=== PATIENT | female | born 1935 | race Caucasian/White ===

== ENCOUNTER 2017-10-06 20:32 | Inpatient (IN) | payer MEDICARE, OTHER ==
[~2017-10-06] VITALS: Ht 167.6 cm; Wt 58.5 kg
[2017-10-06 22:30] VITALS: BP 137/95
[2017-10-06] MEDS ORDERED: DIAZEPAM 2 MG (VALIUM) TAB PO ONE (23:15)
[2017-10-06] MEDS: D5 1/2 NS 1000 ML IV SOLUTION 1,000 ML IV SCH (23:24)
[2017-10-06] MEDS ORDERED: ONDANSETRON 4 MG/2 ML (SDV) Z0FRAN IV PRN (23:30)
[2017-10-06] MEDS: fentaNYL INJECTION 100 MCG/2 ML AMP IV PRN (23:49)
[2017-10-07] VITALS (7 sets, daily range): BP systolic 137–181; BP diastolic 74–96
[2017-10-07] MEDS: LORazepam INJ 2 MG/ML (ATIVAN) VIAL IV PRN ×2 (02:40→06:29)
[2017-10-07] MEDS: fentaNYL INJECTION 100 MCG/2 ML AMP IV PRN ×4 (02:41→11:48)
--- NOTE | 2017-10-07 08:47 | HISTORY AND PHYSICAL ---
DATE OF SERVICE: 10/07/2017 CHIEF COMPLAINT: Pain in left hip. HISTORY OF PRESENT ILLNESS: This is an 81-year-old female who fell last night and sustained a left femoral neck fracture. She presented to the emergency room at [place] and was diagnosed with a hip fracture. They copied her x-rays to [facility], did lab work there, and sent her to [facility] for treatment of the fracture. She denies any other injury. The patient apparently went to sit down a kitchen chair and fell on her buttock. She can move all other extremities well. She has some minor scraping to the left shoulder. She has pain in the left hip. She has history of dementia and is very confused from that. PAST MEDICAL HISTORY: Hypertension, dementia, hypothyroidism. ALLERGIES: No known drug allergies. HOME MEDICATIONS: Amlodipine 5 mg daily, Valium 2 mg p.r.n., Aricept 10 mg daily, Flonase spray p.r.n., hydrocodone 5 for pain, levothyroxine 50 mcg p.o. daily, Megace 40 mg daily, multivitamin daily, Bactroban ointment p.r.n., Seroquel 25 mg daily, Kenalog ointment p.r.n. PAST SURGICAL HISTORY: Hysterectomy, EGD. FAMILY HISTORY: Noncontributory. SOCIAL HISTORY: Denies smoking, alcohol. She lives in [place]. She is retired. REVIEW OF SYSTEMS: Unobtainable. PHYSICAL EXAMINATION: VITAL SIGNS: Temperature 98.2, blood pressure 163/74, pulse 76, respirations 18, pulse ox 98%. GENERAL: She is sleeping in bed and I did not wake her up due to her recent problems with agitation and combativeness. Her daughter is in the room. HEENT: No obvious trauma, no hematomas or bruising. Upper extremities show no deformity other than some arthritic deformities of the fingers. There is an abrasion to the left lateral shoulder. CHEST: Clear to auscultation. HEART: Regular rate and rhythm with a systolic ejection murmur noted. ABDOMEN: Positive bowel sounds, no masses, no distention. EXTREMITIES: His left hip is tender to palpation. The rest of the lower extremities are atraumatic. NEUROLOGIC: Unobtainable at this time due to her being heavily sedated. VASCULAR: Good capillary refill noted. X-RAYS: Displaced left femoral neck fracture LABORATORY DATA: Studies we have no lab studies here at [facility], but they sent copies of her lab studies from [place]. Her protime is 10. INR is 1. CBC shows a white count of 9.8, hemoglobin 11.9, hematocrit 35.7, platelets 299. Her complete metabolic panel shows a sodium of 133, potassium 5.2, chloride 94, CO2 20, calcium 8.6, BUN 10, creatinine 0.76, glucose 99, total protein 6.6, albumin 3.6. Her PTT is 22.7. DIAGNOSIS: Left femoral neck fracture. PLAN: Since the fracture is displaced we will need to do a hemiarthroplasty. The risks, benefits usual postoperative course of this was explained and understood. The hospitalist has been consulted. Job ID: [id number] DocumentID: [id number] Dictated Date: 10/07/2017 07:21:08 Line Server Date: 10/07/2017 08:47:45 Dictated By: JONATHAN RAMOS MD MTDD
[2017-10-07] MEDS ORDERED: ALPR1TAB7 PO (09:58)
[2017-10-07] MEDS ORDERED: AMLO5TAB2 PO (09:58)
[2017-10-07] MEDS ORDERED: LEVO50TA6 PO (09:58)
[2017-10-07] MEDS ORDERED: AMIT50TA3 PO (09:58)
[2017-10-07] MEDS ORDERED: COCO1000 PO (10:07)
[2017-10-07] MEDS ORDERED: CHOL20003 PO (10:07)
[2017-10-07] MEDS ORDERED: VITA1CAP PO (10:07)
[2017-10-07] MEDS ORDERED: QUET25TA73 PO (10:07)
[2017-10-07] MEDS ORDERED: GENTAMICIN 40 MG/ML 2 ML INJ SDV ONE (10:17)
[2017-10-07] MEDS ORDERED: LACTATED RINGERS 1,000 ML IV PRN (10:18)
[2017-10-07] MEDS ORDERED: SEVOFLURANE (ULTANE) 15 ML INHAL SOLN ONE ×2 (11:50→13:35)
[2017-10-07] MEDS ORDERED: proPOfol 200 MG/20 ML (DIPRIVAN) VIAL IV ONE (11:50)
[2017-10-07] MEDS ORDERED: NEOSTIGMINE 1 MG/ML 5 ML SYRINGE ONE (11:50)
[2017-10-07] MEDS ORDERED: LIDOCAINE PF 2% 5 ML (XYLOCAINE) VIAL ONE (11:50)
[2017-10-07] MEDS ORDERED: fentaNYL INJECTION 100 MCG/2 ML AMP ONE (11:50)
[2017-10-07] MEDS ORDERED: DEXAMETHASONE 10 MG/ML (DECADRON) 1 ML VIAL ONE (11:50)
[2017-10-07] MEDS ORDERED: ROCURONIUM 10 MG/ML 5 ML SYRINGE IV ONE (11:50)
[2017-10-07] MEDS ORDERED: GLYCOPYRROLATE 0.2 MG/ML (ROBINUL) 2 ML VIAL ONE (11:50)
[2017-10-07] MEDS ORDERED: ONDANSETRON 4 MG/2 ML (SDV) Z0FRAN ONE (11:50)
[2017-10-07] MEDS: KETOROLAC 15 MG/ML VIAL IM/IV SCH ×2 (12:45→18:03)
[2017-10-07] MEDS ORDERED: morphine INJ 4 MG/ML 1 ML (VIAL/SYRINGE) IV PRN (12:45)
[2017-10-07] MEDS ORDERED: ACETAMINOPHEN 325 MG TABLET/CAPLET (TYLENOL) PO PRN (12:45)
[2017-10-07] MEDS ORDERED: oxyCODONE/APAP 5/325MG (PERCOCET 5) TABLET PO PRN (12:45)
[2017-10-07] MEDS ORDERED: ceFAZolin 1,000 MG (ANCEF) VIAL ONE (12:48)
[2017-10-07] MEDS ORDERED: PHENYLEPHRINE 100 MCG/ML 10 ML (ANESTHESIA) SYR ONE (13:35)
--- NOTE | 2017-10-07 13:57 | Physical Therapy Progress Note ---
Therapy Progress Note Patient currently in surgery. DAMIEN WILLIAMSON PT Oct 07, 2017 13:57
--- NOTE | 2017-10-07 14:15 | Progress Note-Post Operative ---
Post-Operative Progess Note Surgeon (s)/Manager Embalmer Funeral Director (s) Surgeon JONATHAN RAMOS MD Manager Embalmer Funeral Director: THOM LENTZ PA-C Pre-Operative Diagnosis LEFT DISPLACED SUBCAPITAL FEMORAL NECK FRACTURE Post-Operative Diagnosis SAME Procedure & Operative Findings Date of Procedure 10/07/17 Procedure Performed/Findings BIPOLAR HEMIARTHROPLASTY LEFT HIP Anesthesia Type GENERAL Estimated Blood Loss Estimated blood loss (mL): 300 ML Specimens/Packing Specimens Removed NONE Packing: NONE JONATHAN RAMOS MD Oct 07, 2017 14:15
[2017-10-07] MEDS ORDERED: morphine INJ 10 MG/ML 1ML (SYR OR VIAL) ONE (14:38)
[2017-10-07] MEDS ORDERED: morphine INJ 10 MG/ML 1ML (SYR OR VIAL) IVP PRN (15:00)
[2017-10-07] MEDS ORDERED: ONDANSETRON 4 MG/2 ML (SDV) Z0FRAN IVP PRN (15:00)
--- NOTE | 2017-10-07 15:00 | Diagnostic Imaging Report ---
INDICATION: Status post left hip replacement. COMPARISON: None. FINDINGS: Single AP view of the pelvis was obtained. There are expected postsurgical changes of left hip hemiarthroplasty . There is appropriate anatomic alignment of the femoral component in relation to the acetabulum. The stem of the femoral component is located centrally in the medullary cavity. There is no periprosthetic fracture. No acute fracture or dislocation is identified. There is a small amount of subcutaneous emphysema in the surrounding soft tissues. No unexpected radiopaque foreign bodies identified. IMPRESSION: Expected postsurgical changes of left hip hemiarthroplasty.. No unexpected radiopaque foreign body identified. Dictated by: Dictated on workstation # [id number]
--- NOTE | 2017-10-07 15:11 | Diagnostic Imaging Report ---
INDICATION: Status post left hip replacement. COMPARISON: None. FINDINGS: Two radiographic views of the left hip were obtained. There are post surgical changes of recent left hip hemiarthroplasty. There is appropriate anatomic alignment of the femoral component in relation to the acetabulum. The stem of the femoral component is located centrally in the medullary cavity. There is no periprosthetic fracture. No acute fracture or dislocation is identified. There is a small amount of subcutaneous emphysema in the surrounding soft tissues. No unexpected radiopaque foreign bodies identified. IMPRESSION: Expected postsurgical changes of left hip hemiarthroplasty. No unexpected radiopaque foreign body identified. Dictated by: Dictated on workstation # [id number]
[2017-10-07] MEDS: LACTATED RINGERS 1,000 ML IV SCH (15:43)
[2017-10-07] MEDS: D5 1/2 NS 1000 ML IV SOLUTION 1,000 ML IV SCH (15:45)
[2017-10-07] MEDS: HYDROcodone/APAP 5 MG/325 MG (LORTAB) TAB PO PRN (18:47)
[2017-10-07] MEDS: ceFAZolin 2 GM IV Premixed 50 ML IV SCH (20:08)
[2017-10-07] MEDS: QUEtiapine 25 MG (SEROquel) TAB IMMEDIATE RELEASE PO SCH (20:11)
--- NOTE | 2017-10-07 23:57 | OPERATIVE REPORT ---
DATE OF SERVICE: 10/07/2017 PREOPERATIVE DIAGNOSIS: Displaced subcapital left femoral neck fracture. POSTOPERATIVE DIAGNOSIS: Displaced subcapital left femoral neck fracture. PROCEDURE: Bipolar hemiarthroplasty, left hip. SURGEON: Jonathan Balderas MD EXPLOSION WELDER: Rene Daly PA-C. EXPLOSION WELDER SURGEON DUTIES: The patient positioning, retraction, wound closure, application of sterile dressings. Use of an secretary administrative assistant surgeon was medically indicated. ANESTHESIA: General. COMPLICATIONS: None. ESTIMATED BLOOD LOSS: 300 mL. SPECIMENS: None. INDICATIONS: This lady is fractured her left hip yesterday evening when she missed the chair sitting down. She was admitted to the hospital for treatment of a left femoral neck fracture. IMPLANTS: DePuy Tri-Lock size 4 standard offset press-fit femoral stem with a 28 mm femoral head +1.5 mm neck length a 44 mm bipolar head. PROCEDURE IN DETAIL: After informed consent, the patient transported to the operating room. She was placed on the operative table in supine position. General anesthesia was induced. She was then turned to the right lateral decubitus position on the pegboard. Axillary roll placed. The left hip was prepped with ChloraPrep and draped in sterile fashion. An Ioban was placed on the skin. A curvilinear incision was made over the lateral aspect of the left hip was carried out through subcutaneous tissues down to the deep fascia. The fascia houston and gluteus fascia were opened in line with the skin incision and then the Charnley self-retaining hip retractor was placed. The left hip was externally rotated. A direct lateral approach was utilized. The abductors were split anteriorly and superiorly towards the ilium and then the medius and minimus tendons were released from the greater trochanter anteriorly and reflected anteriorly as a flap. The joint capsule was entered. Hematoma extruded. The joint capsule was opened in a T-fashion and preserved for repair. The hip was externally rotated, flexed and abducted and the remaining femoral neck was trimmed with a sagittal saw. Femoral head was removed from the acetabulum with a corkscrew. The measuring device showed it to be 44 diameter. A 44 trial head was placed on the handle and placed in the acetabulum and had a good fit. Next, the femur was opened with box chisel followed by T-handle reamer and broaches up to a 4 broach, which obtained a good fit. The Calcar reamer was utilized. I then trialed a standard offset femoral neck, the standard 28 mm femoral head and a 44 bipolar head, she fit very tightly. I dropped down to 1.5 neck length and this allowed for full range of motion and equal leg lengths. The hip that was dislocated, the trial components were removed. The femur was thoroughly irrigated with the pulse lavage and then the size 4 standard offset stem was impacted. The 28 mm femoral head with a +1.5 neck length was impacted onto the stem along with the bipolar head. The hip was again reduced and felt to be stable. The joint was thoroughly irrigated with a pulse lavage. The femur was carefully inspected and was free of any fracture. The joint capsule was closed with interrupted #5 Ethibond and then the gluteus medius and minimus tendons were repaired to the greater trochanter with interrupted #5 Ethibond suture, which was reinforced with interrupted #1 Vicryl suture. The gluteus fascia and fascia houston were closed with a running double layered #1 Stratafix suture with #1 Vicryl sutures at stress points, subcutaneous tissues were closed with running 2-0 Vicryl. Skin was repaired with michelle. Sterile dressings were applied. She then was transported to the recovery room in stable condition having tolerated the procedure well without complications. Job ID: [id number] DocumentID: [id number] Dictated Date: 10/07/2017 14:13:51 Equipment Superintendent Date: 10/07/2017 23:56:30 Dictated By: JONATHAN BALDERAS MD [facility]
[2017-10-08] VITALS (7 sets, daily range): BP systolic 127–181; BP diastolic 71–89
[2017-10-08] MEDS: KETOROLAC 15 MG/ML VIAL IM/IV SCH (00:36)
[2017-10-08] MEDS: LORazepam INJ 2 MG/ML (ATIVAN) VIAL IV PRN ×6 (00:48→17:50)
[2017-10-08] MEDS: LACTATED RINGERS 1,000 ML IV SCH ×2 (04:04→17:43)
[2017-10-08] MEDS: ceFAZolin 2 GM IV Premixed 50 ML IV SCH (04:04)
[2017-10-08] MEDS: LEVOTHYROXINE 50 MCG (LEVOTHROID) TAB PO SCH (05:03)
[2017-10-08] MEDS: HYDROcodone/APAP 5 MG/325 MG (LORTAB) TAB PO PRN ×3 (05:03→19:38)
[2017-10-08] MEDS: MULTIVIT W/MINERALS TAB (THERAGRAN M) PO SCH (05:03)
[2017-10-08 05:51] LABS: HEMOGLOBIN 10.7 G/DL (11.5-16.0)
--- NOTE | 2017-10-08 08:13 | Anesthesia-General Post-Op ---
General Significant Intra-Op Events Notes Pt sleeping, nurse reported no anesthesia complications Patient Condition Mental Status/LOC: Same as Preop Cardiovascular: Satisfactory Nausea/Vomiting: Absent Respiratory: Satisfactory Pain: Controlled Complications: Absent Post Op Complications Complications None Follow Up Care/Instructions Patient Instructions None needed. Anesthesia/Patient Condition Patient Condition Patient is doing well, no complaints, stable vital signs, no apparent adverse anesthesia problems. No complications reported per nursing. [place] [facility] [place]: Yes MELLY VALENZUELA CRNA Oct 08, 2017 08:13
--- NOTE | 2017-10-08 08:44 | Physical Therapy Evaluation ---
PT Evaluation-General Medical Diagnosis Admission Date Oct 06, 2017 at 22:32 Medical Diagnosis: left ANY Onset Date: Oct 06, 2017 Therapy Diagnosis Therapy Diagnosis: impaired mobility, strength, endurance, pain Height/Weight Height (Feet): 5 Height (Inches): 6.00 Weight (Pounds): 128 Weight (Ounces): 14.7 Precautions Precautions/Isolations: Fall Prevention, Standard Precautions Weight Bear Status Right Lower Extremity: Right Full Weight Bearing Left Lower Extremity: Left Full Weight Bearing Referral Physician: Jhon Balderas MD Reason for Referral: Evaluation/Treatment Medical History Pertinent Medical History: Arthritis, Dementia, HTN, Hypothroidism Current History patient tried to sit on a chair, missed and landed on her bottom Reviewed History: Yes Social History Home: Apartment Current Living Status: Spouse Entry Into Home: Level Entry Prior/Core FIM Prior Level of Function Functional [place] Measure 0=Not Assessed/NA 4=Minimal Assistance 1=Total Assistance 5=Supervision or Setup 2=Maximal Assistance 6=Modified [place] 3=Moderate Assistance 7=Complete [place] unknown, patient is confused and does not communicate, only grunts PT Evaluation-Current Subjective Patient in bed pre tx, confused, only grunts to communicate, does seem to indicate that she has some pain in her left hip. Pt/Family Goals none stated Objective Patient Orientation: Confused Attachments: IV ROM/Strength ROM Lower Extremities NT Strength Lower Extremities NT due to pain and confusion, not able to follow commands Neuromuscular (Tone, Coordination, Reflexes) NT Transfers Functional [place] Measure 0=Not Assessed/NA 4=Minimal Assistance 1=Total Assistance 5=Supervision or Setup 2=Maximal Assistance 6=Modified [place] 3=Moderate Assistance 7=Complete [place] Transfers (B, C, W/C) (FIM): 2 Scootin Rollin Supine to/from Sit: 2 Sit to/from Stand: 2 Patient was able to sit at the edge of the bed for about 5 min and stood twice for approx. 30 seconds each time, she was not able to bear much weight on her left leg. Balance Sitting Static: Poor Sitting Dynamic: Poor Standing Static: Poor Standing Dynamic: Poor Treatment PROM attempted on left leg (within protocol), but patient resisted and would not let it happen, she does not follow commands and will not perform protocol exercises. Assessment/Needs Patient has impaired mobility, strength, endurance, balance, pain, post left ANY. She is confused and a high fall risk. Bed alarm on at the end of the treatment. Rehab Potential: Guarded PT Short Term Goals Short Term Goals Time Frame: October 15, 2017 Transfers (B,C,W/C) (FIM): 4 Gait (FIM): 1 Gait Distance Comment: 20' Gait Level of Assist: 4 Gait Assistive Device: FWW PT Plan Problem List Problem List: Activity Tolerance, Functional Strength, Safety, Balance, Gait, Transfer, Bed Mobility, ROM Treatment/Plan Treatment Plan: Continue Plan of Care Treatment Plan: Bed Mobility, Education, Functional Activity Tory, Functional Strength, Gait, Safety, Therapeutic Exercise, Transfers Treatment Duration: October 15, 2017 Frequency: 11 times per week Estimated Hrs Per Day: .25 hour per day (15-30') Patient and/or Family Agrees t: Yes Safety Risks/Education Patient Education: Transfer Techniques, Reviewed Precautions, Correct Positioning, Disease Process, Safety Issues Teaching Recipient: Patient Teaching Methods: Demonstration, Discussion Response to Teaching: Reinforcement Needed Discharge Recommendations Plan Patient will perform bed mobility and transfer training, balance and endurance training, functional strengthening, stair training, gait training, and education , to improve functional mobility and independence at home. Therapy D/C Recommendations: Home w/ Family Support, Retirement (TCU/NH) Time/GCodes Time In: 819 Time Out: 834 Total Billed Treatment Time: 15 Total Billed Treatment 1 visit RAND 15' ZHANNA MAO PT Oct 08, 2017 08:44
[2017-10-08] MEDS ORDERED: COCONUT OIL 1000 MG PO SCH (09:00)
[2017-10-08] MEDS: amLODIPine 5 MG (NORVASC) TAB PO SCH (09:16)
[2017-10-08] MEDS: VITAMIN D3 1,000 UNITS (CHOLECALCIFEROL) TABLET PO SCH (09:16)
--- NOTE | 2017-10-08 10:51 | Occupational Therapy Eval ---
OT Evaluation-General/PLF Medical Diagnosis Admission Date Oct 06, 2017 at 22:32 Medical Diagnosis: left ANY Onset Date: Oct 06, 2017 Therapy Diagnosis Therapy Diagnosis: decreased self care skills Height/Weight Height (Feet): 5 Height (Inches): 6.00 Weight (Pounds): 128 Weight (Ounces): 14.7 Precautions Precautions/Isolations: Fall Prevention, Standard Precautions Safety Interventions: Reorient-Attempt, Reorient-PRN Referral Physician: Jhon Balderas MD Medical History Pertinent Medical History: Arthritis, Dementia, HTN, Hypothroidism Current History Pt was attempting to sit in a chair at home and missed the chair. S/p left hemiarthroplasty Reviewed History: Yes Social History Home: Apartment Current Living Status: Spouse Entry Into Home: Level Entry ADL-Prior Level of Function ADL PLOF Comments Pt unable to provide history. Daughter present and states pt has been living at home with spouse. Pt has been requiring some assist with ADLs at baseline secondary to dementia. Is able to ambulate without AD, and is able to dress, toilet, and feed self. Spouse assists with tub transfers and bathing. Daughter states the family has been discussing the living situation as pt has been more difficult to care for at home. DME/Equipment: Grab Bars, Tub Drive Self: No OT Current Status Subjective Pt in bed with daughter present. Pt states she is not having pain, but does wince with movement. Pt able to answer simple questions, but has minimal verbalizations. Pt groans throughout treatment, but daughter states this is not new. Mental Status/Objective Patient Orientation: Person, Confused Attachments: IV Current Glasses/Contacts: No Hearing Aids: Yes Dentures/Partials: No Hand Dominance: Right Upper Extremity ROM Grossly WFL Upper Extremity Strength Unable to perform formal MMT secondary to difficulty following commands. Pt appears to have fair strength. ADL-Treatment ADL-Current Daughter states she fed pt breakfast this morning as pt was too confused to complete on her own. Pt able to wash face with minimal assistance when given washcloth. Pt declined to attempt combing hair, required assist to complete task. Pt supine to sit with moderate assistance. Pt able to sit EOB with minimal assistance for balance. Sit to supine with assist for bilateral LE. Pt resting in bed with needs met and daughter present after session. Functional [place] Measure 0=Not Assessed/NA 4=Minimal Assistance 1=Total Assistance 5=Supervision or Setup 2=Maximal Assistance 6=Modified [place] 3=Moderate Assistance 7=Complete IndependenceIRFPAI Quality Coding Scale 6 Independent with activity with or without an assistive device 5 Patient requires set up or clean up by helper. Patient completes activity by themselves 4 Supervision or touching assist (CGA). [place] provide cues , steadying assist 3 The helper provides less than half the effort to complete the activity 2 The helper provides more than half the effort to complete the activity 1 Dependent. The helper does all the effort to complete an activity 7 Patient refused to complete or attempt activity 9 The patient did not perform the activity before the current illness or injury 88 Not attempted due to Medical conditions or safety concerns Eating (FIM): 1 Grooming (FIM): 2 Education OT Patient Education: Rehab process Teaching Recipient: Patient Teaching Methods: Discussion Response to Teaching: Unable to Comprehend OT Short Term Goals Short Term Goals Transfers (B,C,W/C) (FIM): 4 1=Demonstrate adherence to instructed precautions during ADL tasks. 2=Patient will verbalize/demonstrate understanding of assistive devices/ modifications for ADL. 3=Patient will improve strength/tolerance for activity to enable patient to perform ADL's. OT Telephone Operator Receptionist Goals Telephone Operator Receptionist Goals Time Frame: October 22, 2017 Eating (FIM): 5 Grooming(FIM): 4 Upper Body Dressing(FIM): 4 Toilet/Commode Transfer(FIM): 3 Additional Goals: 2-Verbalize Understanding, 3-ImproveStrength/Tory 1=Demonstrate adherence to instructed precautions during ADL tasks. 2=Patient will verbalize/demonstrate understanding of assistive devices/ modifications for ADL. 3=Patient will improve strength/tolerance for activity to enable patient to perform ADL's. OT Education/Plan Problem List/Assessment Assessment: Decreased Activ Tolerance, Decreased Safety Aware, Decreased UE Strength, Dependent Transfers, Impaired Cognition, Impaired Coordination, Impaired Funct Balance, Impaired I ADL's, Impaired Self-Care Skills Pt admitted with left hip fracture, now s/p surgical intervention. Pt is confused and has difficulty following commands and participating in functional tasks. Pt to benefit from skilled OT intervention for ADL training, transfers, and strengthening to maximize level of function and allow safe discharge plan. Discharge Recommendations Plan/Recommendations: Continue POC Treatment Plan/Plan of Care Treatment,Training & Education: Yes Patient would benefit from OT for education, treatment and training to promote independence in ADL's, mobility, safety and/or upper extremity function for ADL' s. Plan of Care: ADL Retraining, Functional Mobility, UE Funct Exercise/Act Treatment Duration: October 22, 2017 Frequency: 5 times per week Estimated Hrs Per Day: .25 hour per day Rehab Potential: Guarded Time/GCodes Start Time: 10:18 Stop Time: 10:42 Total Time Billed (hr/min): 24 Billed Treatment Time 1 visit, KAROLINA(10minutes), DOC(14minutes) GENO DRUMMOND OT Oct 08, 2017 10:51
--- NOTE | 2017-10-08 12:32 | Progress Note (SOAP) ---
Subjective Date Seen by Provider: Oct 08, 2017 Time Seen by Provider: 12:30 Subjective/Events-last exam POD s/p bipolar prosthesis left hip. Daughter at bedside. Patient does not verbalize complaints. Objective Exam Vital Signs Date Time Temp Pulse Resp B/P (MAP) Pulse Ox O2 Delivery O2 Flow Rate FiO2 10/08/17 08:00 99.6 100 20 169/81 (110) 93 Room Air 10/08/17 05:00 99.0 109 19 179/78 (111) 92 Room Air 10/08/17 00:00 96.7 94 18 127/89 (102) 91 Room Air 10/07/17 19:10 98.3 90 20 137/90 (106) 97 Nasal Cannula 2.00 10/07/17 16:32 97.9 92 18 148/82 (104) 94 OxyMask 2.00 10/07/17 15:56 93 OxyMask 2.00 10/07/17 13:36 Nasal Cannula 2.00 I & O 10/08/17 07:00 Intake Total 1250 ml Output Total 1670 ml Balance -420 ml Capillary Refill : Less Than 3 Seconds General Appearance: No Apparent Distress Respiratory: No Accessory Muscle Use Cardiovascular: Normal Peripheral Pulses Gastrointestinal: non tender Extremity: Normal Capillary Refill, No Calf Tenderness Neurologic/Psychiatric: Alert Skin: Normal Color, Warm/Dry (dressing left hip CDI) Results Lab Laboratory Tests 10/08/17 05:13: Hemoglobin 10.7L, Hematocrit 31L Assessment/Plan Assessment/Plan Assess & Plan/Chief Complaint A: s/p bipolar prosthesis left hip severe dementia left femoral neck fracture P: Continue current treatment. oncology social worker to assess for skilled placement. Clinical Quality Measures DVT/VTE Risk/Contraindication: Risk Factor Score Per Nursin RFS Level Per Nursing on Admit: 4+=Very High PAPA ULLOA APRN Oct 08, 2017 12:32 pm
--- NOTE | 2017-10-08 12:39 | Consultation-Hospitalist ---
HPI History of Present Illness: HPI/Chief Complaint CC: Medical management following left hip fracture HPI: This is an 81-year-old white female clinic patient of Dr. Alonzo who has a history of severe dementia cared for by her at home who presented to [facility] after presenting to [place] ER after she fell could not move due to left hip pain and was diagnosed with left hip fracture. Patient underwent an uncomplicated left hip repair by Dr. Balderas and is currently doing well but needs her family at the bedside continuously. Her daughter is at the bedside and is aware that she needs to go to the [facility] without location of that facility. I have consulted geriatric social work professor. I will check labs in the morning I've reconciled and restarted home medications and will monitor patient closely for any type of delirium. Patient unable to give any details to me. Source: family Exam Limitations: no limitations Date Seen 10/08/17 Attending Physician Jhon Balderas MD PCP Jhon Alonzo MD Referring Physician Date of Admission Oct 06, 2017 at 22:32 Home Medications & Allergies Home Medications Reviewed patient Home Medication Reconciliation performed by pharmacy medication reconciliations facility environmental technician and/or nursing. Patients Allergies have been reviewed. Allergies Allergies Coded Allergies No Known Drug Allergies (Unverified10/06/17) Past Cpwulza-Hthcuf-Abuwns Hx Past Med/Social Hx: Reviewed Nursing Past Med/Soc Hx, Reviewed and Corrections made Patient Social History Marrital Status: Employed/Student: retired Alcohol Use: Denies Use Recreational Drug Use: No Smoking Status: Never a Smoker Physical Abuse Screen: No Sexual Abuse: No Recent Foreign Travel: No Contact w/other who traveled: No Recent Hopitalizations: No Recent Infectious Disease Expo: No Seasonal Allergies Seasonal Allergies: No Past Medical History Surgeries: Orthopedic Neurological: Dementia Endocrine: Hypothyroidsim Cancer: Skin Did You Recieve Any Treatments: Yes What Type of Treatment Did You: Surgical Intervention Psychosocial: Sleep Difficulties, Anxiety History of Blood Disorders: No Adverse Reaction to Blood Aranda: No Family History Hypertension Review of Systems ROS-Unable to Obtain: Unable to ascertain due to dementia Constitutional: see HPI Physical Exam Physical Exam Vital Signs Vital Signs - First Documented 10/06/17 10/07/17 22:30 02:00 Temp 98.9 Pulse 99 Resp 19 B/P (MAP) 137/95 (109) Pulse Ox 100 O2 Delivery Nasal Cannula O2 Flow Rate 2.00 Capillary Refill : Less Than 3 Seconds General Appearance: No Apparent Distress, WD/WN, Chronically ill HEENT: Normal ENT Inspection Neck: Normal Inspection Respiratory: Lungs Clear, Normal Breath Sounds Cardiovascular: Regular Rate, Rhythm, No Edema Gastrointestinal: Non Tender, Soft Back: Normal Inspection, No CVA Tenderness, No Vertebral Tenderness Extremity: Normal Capillary Refill, Normal Inspection, Normal Range of Motion ( Except left leg due to pain), Non Tender, No Calf Tenderness Neurologic/Psychiatric: Alert, Disoriented Skin: Normal Color, Warm/Dry Lymphatic: No Adenopathy Results Results/Procedures Labs Laboratory Tests 10/08/17 05:13 Patient resulted labs reviewed. Assessment/Plan Assessment and Plan Assess & Plan/Chief Complaint Assessment: Acute left hip fracture status post uncomplicated repair Hypothyroidism Severe dementia Plan: Check labs in morning DVT prophylaxis alf placement on Friday Diagnosis/Problems Diagnosis/Problems (1) Hip fracture, left Status: Acute Qualifiers: Encounter type: initial encounter Fracture type: closed Qualified Codes: S72.002A - Fracture of unspecified part of neck of left femur, initial encounter for closed fracture (2) Dementia Status: Chronic Qualifiers: Dementia type: Alzheimer's disease Alzheimer's disease onset: unspecified onset Dementia behavioral disturbance: with behavioral disturbance Qualified Codes: G30.9 - Alzheimer's disease, unspecified; F02.81 - Dementia in other diseases classified elsewhere with behavioral disturbance (3) Hypothyroidism Status: Chronic Qualifiers: Hypothyroidism type: acquired Qualified Codes: E03.9 - Hypothyroidism, unspecified Clinical Quality Measures DVT/VTE Risk/Contraindication: Risk Factor Score Per Nursin RFS Level Per Nursing on Admit: 4+=Very High FILI CREWS DO Oct 08, 2017 12:39
--- NOTE | 2017-10-08 15:46 | Physical Therapy Daily Note ---
PT Daily Note-Current Subjective Patient in bed pre tx, family in the room. Unable to assess pain. Appearance Patient in bed post tx with nurse call, phone, tray, bed alarm on, O2 on. Mental Status Patient Orientation: Confused Attachments: Oxygen Transfers Functional [place] Measure 0=Not Assessed/NA 4=Minimal Assistance 1=Total Assistance 5=Supervision or Setup 2=Maximal Assistance 6=Modified [place] 3=Moderate Assistance 7=Complete IndependenceIRFPAI Quality Coding Scale 6 Independent with activity with or without an assistive device 5 Patient requires set up or clean up by helper. Patient completes activity by themselves 4 Supervision or touching assist (CGA). [place] provide cues , steadying assist 3 The helper provides less than half the effort to complete the activity 2 The helper provides more than half the effort to complete the activity 1 Dependent. The helper does all the effort to complete an activity 7 Patient refused to complete or attempt activity 9 The patient did not perform the activity before the current illness or injury 88 Not attempted due to Medical conditions or safety concerns Transfers (B, C, W/C) (FIM): 2 Scootin Rollin Supine to/from Sit: 2 Sit to/from Stand: 2 Patient transferred from supine to sit with max assist of 2, stood twice at the edge of the bed with max assist for about 10 seconds each time. Weight Bearing Right Lower Extremity: Right Full Weight Bearing Left Lower Extremity: Left Full Weight Bearing Exercises Seated Therapy Exercises: Ankle pumps, Long arc quads Seated Reps: 5 5 reps of exercises is all she would perform Treatments bed mobility, transfers, functional strengthening Assessment Current Status: Poor Progress poor mobility PT Short Term Goals Short Term Goals Time Frame: October 15, 2017 Transfers (B,C,W/C) (FIM): 4 Gait (FIM): 1 Gait Distance Comment: 20' Gait Level of Assist: 4 Gait Assistive Device: FWW PT Plan Problem List Problem List: Activity Tolerance, Functional Strength, Safety, Balance, Gait, Transfer, Bed Mobility, ROM Treatment/Plan Treatment Plan: Continue Plan of Care Treatment Plan: Bed Mobility, Education, Functional Activity Tory, Functional Strength, Gait, Safety, Therapeutic Exercise, Transfers Treatment Duration: October 15, 2017 Frequency: 11 times per week Estimated Hrs Per Day: .25 hour per day (15-30') Patient and/or Family Agrees t: Yes Safety Risks/Education Patient Education: Transfer Techniques, Correct Positioning, Safety Issues Teaching Recipient: Patient Teaching Methods: Demonstration, Discussion Response to Teaching: Reinforcement Needed Time/GCodes Time In: 1515 Time Out: 1525 Total Billed Treatment Time: 10 Total Billed Treatment 1 visit FA ZHANNA GILMAN PT Oct 08, 2017 15:46
[2017-10-08] MEDS: QUEtiapine 25 MG (SEROquel) TAB IMMEDIATE RELEASE PO SCH (19:38)
[2017-10-08] MEDS ORDERED: amLODIPine 5 MG (NORVASC) TAB PO NR (20:15)
[2017-10-09] MEDS: LORazepam INJ 2 MG/ML (ATIVAN) VIAL IV PRN ×4 (02:16→20:52)
[2017-10-09] MEDS: LEVOTHYROXINE 50 MCG (LEVOTHROID) TAB PO SCH (05:48)
[2017-10-09] MEDS: MULTIVIT W/MINERALS TAB (THERAGRAN M) PO SCH (05:50)
[2017-10-09] MEDS: LACTATED RINGERS 1,000 ML IV SCH (05:52)
[2017-10-09 06:21] LABS: BASOPHILS % (AUTO) 0 % (0-10); EOSINOPHILS # (AUTO) 0.3 10^3/uL (0.0-0.3); EOSINOPHILS % (AUTO) 2 % (0-10); HEMATOCRIT 31 % (35-52); HEMOGLOBIN 10.9 G/DL (11.5-16.0); LYMPHOCYTES # (AUTO) 1.7 X 10^3 (1.0-4.0); LYMPHOCYTES % (AUTO) 13 % (12-44); MEAN CORPUSCULAR HEMOGLOBIN 32 PG (25-34); MEAN CORPUSCULAR HGB CONC 35 G/DL (32-36); MEAN CORPUSCULAR VOLUME 93 FL (80-99); MEAN PLATELET VOLUME 9.8 FL (7.4-10.4); MONOCYTES # (AUTO) 0.8 X 10^3 (0.0-1.0); MONOCYTES % (AUTO) 6 % (0-12); NEUTROPHILS % (AUTO) 79 % (42-75); PLATELET COUNT 306 10^3/uL (130-400); RED BLOOD COUNT 3.36 10^6/uL (4.35-5.85); RED CELL DISTRIBUTION WIDTH 13.6 % (10.0-14.5); WHITE BLOOD COUNT 12.8 10^3/uL (4.3-11.0)
[2017-10-09 06:39] LABS: ALANINE AMINOTRANSFERASE 15 U/L (0-55); ALBUMIN 3.1 GM/DL (3.2-4.5); ALKALINE PHOSPHATASE 81 U/L (40-136); BILIRUBIN,TOTAL 0.7 MG/DL (0.1-1.0); BUN/CREATININE RATIO 17; CALCIUM 8.5 MG/DL (8.5-10.1); CARBON DIOXIDE 25 MMOL/L (21-32); CHLORIDE 103 MMOL/L (98-107); GFR ESTIMATED > 60; GLUCOSE 98 MG/DL (70-105); POTASSIUM 3.5 MMOL/L (3.6-5.0); SODIUM 137 MMOL/L (135-145); TOTAL PROTEIN 5.9 GM/DL (6.4-8.2)
[2017-10-09 08:30] VITALS: BP 170/79
[2017-10-09] MEDS: VITAMIN D3 1,000 UNITS (CHOLECALCIFEROL) TABLET PO SCH (08:39)
[2017-10-09] MEDS: amLODIPine 5 MG (NORVASC) TAB PO SCH (08:39)
[2017-10-09] MEDS: HYDROcodone/APAP 5 MG/325 MG (LORTAB) TAB PO PRN (09:04)
--- NOTE | 2017-10-09 09:14 | Physical Therapy Daily Note ---
PT Daily Note-Current Subjective Patient is in bed. Family present. Family agrees to PT. Pain Numeric Pain Scale: 5-Moderate Pain Location: Left Location Body Site: Hip Pain Description: Acute Comment: FLACC Mental Status Patient Orientation: Confused (nonverbal) Attachments: IV Transfers Functional [place] Measure 0=Not Assessed/NA 4=Minimal Assistance 1=Total Assistance 5=Supervision or Setup 2=Maximal Assistance 6=Modified [place] 3=Moderate Assistance 7=Complete IndependenceIRFPAI Quality Coding Scale 6 Independent with activity with or without an assistive device 5 Patient requires set up or clean up by helper. Patient completes activity by themselves 4 Supervision or touching assist (CGA). [place] provide cues , steadying assist 3 The helper provides less than half the effort to complete the activity 2 The helper provides more than half the effort to complete the activity 1 Dependent. The helper does all the effort to complete an activity 7 Patient refused to complete or attempt activity 9 The patient did not perform the activity before the current illness or injury 88 Not attempted due to Medical conditions or safety concerns Transfers (B, C, W/C) (FIM): 1 Scootin Rollin Supine to/from Sit: 1 Sit to/from Stand: 1 Bed to/from Chair: 1 dependent with all mobility. Sat EOB x 15 min minimal assist with PROM bilaterally Weight Bearing Right Lower Extremity: Right Full Weight Bearing Left Lower Extremity: Left Full Weight Bearing Exercises Seated Therapy Exercises: Ankle pumps, Long arc quads Seated Reps: 15 (PROM) Assessment Patient unable to assist due to dementia. Patient is up in recliner with chair alarm activated, family present and tray in reach with family going to feed patient. PT Short Term Goals Short Term Goals Time Frame: October 15, 2017 Transfers (B,C,W/C) (FIM): 4 Gait (FIM): 1 Gait Distance Comment: 20' Gait Level of Assist: 4 Gait Assistive Device: FWW PT Plan Treatment/Plan Treatment Plan: Continue Plan of Care Treatment Plan: Bed Mobility, Education, Functional Activity Tory, Functional Strength, Gait, Safety, Therapeutic Exercise, Transfers Treatment Duration: October 15, 2017 Frequency: 11 times per week Estimated Hrs Per Day: .25 hour per day (15-30') Patient and/or Family Agrees t: Yes Discharge Recommendations Therapy D/C Recommendations: Custodial Placement, Long-Term (TCU/NH) Time/GCodes Time In: 843 Time Out: 906 Total Billed Treatment Time: 23 Total Billed Treatment 1 visit FA x 2 23 min DAMIEN WILLIAMSON PT Oct 09, 2017 09:13
[2017-10-09] MEDS ORDERED: hydrALAZINE (APRESOLINE) 25 MG TAB PO NR (10:30)
[2017-10-09] MEDS ORDERED: BISACODYL 10 MG SUPP (DULCOLAX) PR NR (10:30)
[2017-10-09] MEDS ORDERED: KCL 20 MEQ TAB (K-DUR) PO NR (10:30)
--- NOTE | 2017-10-09 10:40 | Progress Note-Hospitalist ---
Subjective HPI/CC On Admission Date Seen by Provider: Oct 09, 2017 Time Seen by Provider: 10:00 CC: Medical management following left hip fracture HPI: This is an 81-year-old white female clinic patient of Dr. Alonzo who has a history of severe dementia cared for by her at home who presented to [facility] after presenting to [place] ER after she fell could not move due to left hip pain and was diagnosed with left hip fracture. Patient underwent an uncomplicated left hip repair by Dr. Balderas and is currently doing well but needs her family at the bedside continuously. Her daughter is at the bedside and is aware that she needs to go to the halfway and choosing [place] without location of that facility. I have consulted addiction social worker. I will check labs in the morning I've reconciled and restarted home medications and will monitor patient closely for any type of delirium. Patient unable to give any details to me. Subjective/Events-last exam Patient about the same Patient is in process of placement in halfway and I did update Dr. Alonzo on that fact No bowel movement so we'll work on that Daughter at the bedside continuously Required anxiolytics due to aggression last night Hypertension remains an issue so I have increased meds and put orders in Overall stable labs Review of Systems General: Malaise Gastrointestinal: Constipation Neurological: Confusion Objective Exam Vital Signs Vital Signs Date Time Temp Pulse Resp B/P (MAP) Pulse Ox O2 Delivery O2 Flow Rate FiO2 10/09/17 08:30 100.4 105 22 170/79 (109) 93 Room Air 10/07/17 19:10 2.00 Capillary Refill : Less Than 3 Seconds General Appearance: No Apparent Distress, WD/WN HEENT: Normal ENT Inspection Neck: Normal Inspection Respiratory: Lungs Clear, Normal Breath Sounds, Decreased Breath Sounds Cardiovascular: Regular Rate, Rhythm, No Edema Neurologic/Psychiatric: Alert, Disoriented Skin: Normal Color, Warm/Dry Results/Procedures Lab Laboratory Tests 10/09/17 06:00 Patient resulted labs reviewed. Assessment/Plan Assessment and Plan Assess & Plan/Chief Complaint Assessment: Acute left hip fracture status post uncomplicated repair POD # 2 Hypothyroidism Severe dementia HTN Hypokalemia Constipation Plan: Check labs in morning DVT prophylaxis intermediate placement on Friday Increase BP meds BM regimen Diagnosis/Problems Diagnosis/Problems (1) Hip fracture, left Status: Acute Qualifiers: Encounter type: initial encounter Fracture type: closed Qualified Codes: S72.002A - Fracture of unspecified part of neck of left femur, initial encounter for closed fracture (2) Dementia Status: Chronic Qualifiers: Dementia type: Alzheimer's disease Alzheimer's disease onset: unspecified onset Dementia behavioral disturbance: with behavioral disturbance Qualified Codes: G30.9 - Alzheimer's disease, unspecified; F02.81 - Dementia in other diseases classified elsewhere with behavioral disturbance (3) Hypothyroidism Status: Chronic Qualifiers: Hypothyroidism type: acquired Qualified Codes: E03.9 - Hypothyroidism, unspecified (4) Hypertension Status: Chronic Qualifiers: Hypertension type: essential hypertension Qualified Codes: I10 - Essential (primary) hypertension (5) Hypokalemia Status: Acute (6) Constipation Status: Chronic Qualifiers: Constipation type: drug induced constipation Qualified Codes: K59.03 - Drug induced constipation Clinical Quality Measures DVT/VTE Risk/Contraindication: Risk Factor Score Per Nursin RFS Level Per Nursing on Admit: 4+=Very High FILI CREWS DO Oct 09, 2017 10:40
[2017-10-09] MEDS: DIVALPROX SPRINKLE 125 MG (DEPAKOTE) CAP PO SCH ×3 (12:15→22:21)
--- NOTE | 2017-10-09 12:19 | Progress Note (SOAP) ---
Subjective Date Seen by Provider: Oct 09, 2017 Time Seen by Provider: 12:15 Subjective/Events-last exam Postop day 2 bipolar hemiarthroplasty left hip. She is sitting up in a chair. Denies significant pain. Review of Systems General: No Chills, No Night Sweats, No Fatigue, No Malaise HEENT: No Head Aches, No Eye Pain, No Ear Pain, No Dysphasia, No Sinus Congestion, No Post Nasal Drip, No Sore Throat Pulmonary: No Dyspnea, No Cough, No Pleuritic Chest Pain Cardiovascular: No: Chest Pain, Palpitations, Orthopnea, Paroxysmal Noc. Dyspnea, Edema, Lt Headedness Gastrointestinal: No: Nausea, Vomiting, Abdominal Pain, Diarrhea, Constipation , Melena, Hematochezia Genitourinary: No Dysuria, No Frequency, No Incontinence, No Hematuria, No Retention Musculoskeletal: No: other, neck pain, shoulder pain, arm pain, back pain, hand pain, leg pain, foot pain Neurological: No: Weakness, Numbness, Incoordination, Change in speech, Confusion, Seizures, Other Objective Exam Vital Signs Date Time Temp Pulse Resp B/P (MAP) Pulse Ox O2 Delivery O2 Flow Rate FiO2 10/09/17 08:30 100.4 105 22 170/79 (109) 93 Room Air 10/08/17 23:00 98.0 97 14 168/79 (108) 92 Room Air 10/08/17 19:45 98.6 109 20 181/89 (119) 92 Room Air 10/08/17 16:45 98.6 100 18 161/79 (106) 93 Room Air 10/08/17 14:14 99.6 I & O 10/09/17 07:00 Intake Total 2640 ml Balance 2640 ml Capillary Refill : Less Than 3 Seconds General Appearance: No Apparent Distress Extremity: Normal Capillary Refill, No Calf Tenderness, Other (Left hip incision intact with minimal swelling and no drainage) Neurologic/Psychiatric: No Motor/Sensory Deficits, Disoriented Skin: Normal Color, Warm/Dry Results Lab Laboratory Tests 10/09/17 06:00: White Blood Count 12.8H, Red Blood Count 3.36L, Hemoglobin 10.9L, Hematocrit 31L , Mean Corpuscular Volume 93, Mean Corpuscular Hemoglobin 32, Mean Corpuscular Hemoglobin Concent 35, Red Cell Distribution Width 13.6, Platelet Count 306, Mean Platelet Volume 9.8, Neutrophils (%) (Auto) 79H, Lymphocytes (%) (Auto) 13 , Monocytes (%) (Auto) 6, Eosinophils (%) (Auto) 2, Basophils (%) (Auto) 0, Neutrophils # (Auto) 10.0H, Lymphocytes # (Auto) 1.7, Monocytes # (Auto) 0.8, Eosinophils # (Auto) 0.3, Basophils # (Auto) 0.0, Sodium Level 137, Potassium Level 3.5L, Chloride Level 103, Carbon Dioxide Level 25, Anion Gap 9, Blood Urea Nitrogen 10, Creatinine 0.60, Estimat Glomerular Filtration Rate > 60, BUN/ Creatinine Ratio 17, Glucose Level 98, Calcium Level 8.5, Total Bilirubin 0.7, Aspartate Amino Transf (AST/SGOT) 35H, Alanine Aminotransferase (ALT/SGPT) 15, Alkaline Phosphatase 81, Total Protein 5.9L, Albumin 3.1L Assessment/Plan Assessment/Plan Assess & Plan/Chief Complaint Postop bipolar hemiarthroplasty left hip for femoral neck fracture-- she will go to long term/long-term soon according to record Clinical Quality Measures DVT/VTE Risk/Contraindication: Risk Factor Score Per Nursin RFS Level Per Nursing on Admit: 4+=Very High JONATHAN RAMOS MD Oct 09, 2017 12:19
--- NOTE | 2017-10-09 12:23 | Discharge Inst-Surgical ---
Discharge Inst-Surgical Depart Medication/Instructions New, Converted or Re-Newed RX: RX on Chart Final Diagnosis: Left femoral neck fracture Consults/Follow Up Goal/Follow Up Appt.: Follow up with Dr. Balderas in one month at [facility], [place], [place] [phone] Patient Instructions: Keep incision clean and dry with island dressing [place] to be removed at [facility] on 10/17/2017 Weight bear as tolerated left hip Activity Activity as Tolerated: No No bending more than 90 degrees at hip for 6 weeks Walking Assistive Device: Walker Diet Discharge Diet: No Restrictions Diet After 24 Hours: Clear Liquid if Nauseous Symptoms to Report to Physicia: Appetite Changes, Extremity Discoloration, Numbness/Tingling, Swelling Increased, Bleeding Excessive, Pain Increased, Fever Over 101 Degrees F If Any Problems/Questions/Issu: Go to Emergency Room Skin/Wound Care Infection Signs and Symptoms: Increased Redness, Foul Odor of Wound, Increased Drainage, Skin Itchy or Has a Rash, Increased Swelling, Temperature Above 101 F Wound Care Comment: Keep incision dry until michelle are removed on 10/17/5017 Bathing Instructions: Sponge Operative Area Clean and Dry: Keep Incision Clean/Dry Stitches/Michelle/Dermabond Dis: Care of [place] JONATHAN BALDERAS MD Oct 09, 2017 12:23
[2017-10-09] MEDS ORDERED: ACHD5005 PO (12:51)
--- NOTE | 2017-10-09 13:16 | Occupational Ther Daily Note ---
OT Current Status-Daily Note Subjective Daughter was worried about how pt was breathing. Daughter was feeding pt soup and she started getting agitated then breathing hoarsely. Nrsg was told and pt started breathing more normal. Family agrees to therapy. Nrsg present in room. Mental Status/Objective Patient Orientation: Confused Functional [place] Measure 0=Not Assessed/NA 4=Minimal Assistance 1=Total Assistance 5=Supervision or Setup 2=Maximal Assistance 6=Modified [place] 3=Moderate Assistance 7=Complete [place] Attachments: IV Other Treatment Pt was max A x2 for stand pivot transfer. Nrsg completed marlon area hygiene and changed briefs due to urinary incontinence. Assist x2 to lay down in bed and bed mobility. Pt kept eyes closed at beginning of therapy then opened after getting into bed. PT took over care of pt. All needs met in room. OT Short Term Goals Short Term Goals Transfers (B,C,W/C) (FIM): 4 1=Demonstrate adherence to instructed precautions during ADL tasks. 2=Patient will verbalize/demonstrate understanding of assistive devices/ modifications for ADL. 3=Patient will improve strength/tolerance for activity to enable patient to perform ADL's. OT Prison Goals Material Handling Crew Supervisor Goals Time Frame: October 22, 2017 Eating (FIM): 5 Grooming(FIM): 4 Upper Body Dressing(FIM): 4 Toilet/Commode Transfer(FIM): 3 Additional Goals: 2-Verbalize Understanding, 3-ImproveStrength/Tory 1=Demonstrate adherence to instructed precautions during ADL tasks. 2=Patient will verbalize/demonstrate understanding of assistive devices/ modifications for ADL. 3=Patient will improve strength/tolerance for activity to enable patient to perform ADL's. OT Education/Plan Problem List/Assessment Pt admitted with left hip fracture, now s/p surgical intervention. Pt is confused and has difficulty following commands and participating in functional tasks. Pt to benefit from skilled OT intervention for ADL training, transfers, and strengthening to maximize level of function and allow safe discharge plan. Discharge Recommendations Plan/Recommendations: Continue POC Treatment Plan/Plan of Care Patient would benefit from OT for education, treatment and training to promote independence in ADL's, mobility, safety and/or upper extremity function for ADL' s. Plan of Care: ADL Retraining, Functional Mobility, UE Funct Exercise/Act Treatment Duration: October 22, 2017 Frequency: 5 times per week Estimated Hrs Per Day: .25 hour per day Rehab Potential: Guarded Time/GCodes Start Time: 12:55 Stop Time: 13:10 Total Time Billed (hr/min): 15 Billed Treatment Time 1 visit-FA 1 (15 min) JOHN MCDONALD Oct 09, 2017 13:16
--- NOTE | 2017-10-09 14:25 | Physical Therapy Daily Note ---
PT Daily Note-Current Subjective Patient had just returned to bed via OT. Family agrees to exercises. Pain Numeric Pain Scale: 10-Worst Possible Pain Location: Right Location Body Site: Hip Pain Description: Acute Mental Status Patient Orientation: Confused Transfers Functional [place] Measure 0=Not Assessed/NA 4=Minimal Assistance 1=Total Assistance 5=Supervision or Setup 2=Maximal Assistance 6=Modified [place] 3=Moderate Assistance 7=Complete IndependenceIRFPAI Quality Coding Scale 6 Independent with activity with or without an assistive device 5 Patient requires set up or clean up by helper. Patient completes activity by themselves 4 Supervision or touching assist (CGA). [place] provide cues , steadying assist 3 The helper provides less than half the effort to complete the activity 2 The helper provides more than half the effort to complete the activity 1 Dependent. The helper does all the effort to complete an activity 7 Patient refused to complete or attempt activity 9 The patient did not perform the activity before the current illness or injury 88 Not attempted due to Medical conditions or safety concerns Weight Bearing Right Lower Extremity: Right Full Weight Bearing Left Lower Extremity: Left Full Weight Bearing Exercises Supine Ex: Ankle pumps, Heel Slides, Straight leg raise, Hip abd/add Supine Reps: 15 (PROM bilaterally) Assessment Patient will transfer to [place] in a.m. for continued care. Patient remains in bed with needs met and family present. PT Short Term Goals Short Term Goals Time Frame: October 15, 2017 Transfers (B,C,W/C) (FIM): 4 Gait (FIM): 1 Gait Distance Comment: 20' Gait Level of Assist: 4 Gait Assistive Device: FWW PT Plan Treatment/Plan Treatment Plan: Continue Plan of Care Treatment Plan: Bed Mobility, Education, Functional Activity Tory, Functional Strength, Gait, Safety, Therapeutic Exercise, Transfers Treatment Duration: October 15, 2017 Frequency: 11 times per week Estimated Hrs Per Day: .25 hour per day (15-30') Patient and/or Family Agrees t: Yes Time/GCodes Time In: 1310 Time Out: 1319 Total Billed Treatment Time: 9 Total Billed Treatment 1 visit EX 9 min DAMIEN WILLIAMSON PT Oct 09, 2017 14:25
[2017-10-09] MEDS: hydrALAZINE (APRESOLINE) 25 MG TAB PO SCH ×2 (15:09→22:21)
[2017-10-09] MEDS ORDERED: BISACODYL 10 MG SUPP (DULCOLAX) ONE (15:17)
[2017-10-09 15:48] VITALS: BP 140/68
[2017-10-09] MEDS: QUEtiapine 25 MG (SEROquel) TAB IMMEDIATE RELEASE PO SCH (20:51)
[2017-10-09] MEDS ORDERED: MIRTAZAPINE 15 MG (REMERON) TAB PO SCH (21:00)
[2017-10-10] VITALS: BP 141/55
[2017-10-10 06:12] LABS: BASOPHILS % (AUTO) 0 % (0-10); EOSINOPHILS % (AUTO) 0 % (0-10); HEMATOCRIT 33 % (35-52); HEMOGLOBIN 11.3 G/DL (11.5-16.0); LYMPHOCYTES % (AUTO) 7 % (12-44); MEAN CORPUSCULAR HEMOGLOBIN 32 PG (25-34); MEAN CORPUSCULAR HGB CONC 35 G/DL (32-36); MEAN CORPUSCULAR VOLUME 92 FL (80-99); MEAN PLATELET VOLUME 9.7 FL (7.4-10.4); MONOCYTES % (AUTO) 7 % (0-12); NEUTROPHILS % (AUTO) 85 % (42-75); PLATELET COUNT 354 10^3/uL (130-400); RED BLOOD COUNT 3.55 10^6/uL (4.35-5.85); RED CELL DISTRIBUTION WIDTH 13.8 % (10.0-14.5); WHITE BLOOD COUNT 14.1 10^3/uL (4.3-11.0)
[2017-10-10 06:34] LABS: ALANINE AMINOTRANSFERASE 13 U/L (0-55); ALKALINE PHOSPHATASE 87 U/L (40-136); BILIRUBIN,TOTAL 0.9 MG/DL (0.1-1.0); BUN/CREATININE RATIO 18; CALCIUM 8.5 MG/DL (8.5-10.1); CARBON DIOXIDE 21 MMOL/L (21-32); CHLORIDE 102 MMOL/L (98-107); CREATININE SERUM 0.68 MG/DL (0.60-1.30); GFR ESTIMATED > 60; GLUCOSE 114 MG/DL (70-105); POTASSIUM 3.3 MMOL/L (3.6-5.0); SODIUM 136 MMOL/L (135-145); TOTAL PROTEIN 5.7 GM/DL (6.4-8.2)
[2017-10-10] MEDS: hydrALAZINE (APRESOLINE) 25 MG TAB PO SCH (06:45)
[2017-10-10] MEDS: MULTIVIT W/MINERALS TAB (THERAGRAN M) PO SCH (06:45)
[2017-10-10] MEDS: LEVOTHYROXINE 50 MCG (LEVOTHROID) TAB PO SCH (06:45)
[2017-10-10] MEDS: DIVALPROX SPRINKLE 125 MG (DEPAKOTE) CAP PO SCH (06:45)
[2017-10-10 08:00] VITALS: BP 166/79
[2017-10-10] MEDS: VITAMIN D3 1,000 UNITS (CHOLECALCIFEROL) TABLET PO SCH (08:51)
[2017-10-10] MEDS ORDERED: amLODIPine 10 MG (NORVASC) TAB PO SCH (09:00)
[2017-10-10] MEDS ORDERED: BISACODYL 10 MG SUPP (DULCOLAX) PR SCH (09:00)
--- NOTE | 2017-10-10 10:52 | Physical Therapy Daily Note ---
PT Daily Note-Current Subjective Patient is up in recliner and family is present. Pain Numeric Pain Scale: 5-Moderate Pain Location: Left Location Body Site: Hip Pain Description: Acute Comment: FLACC Mental Status Patient Orientation: Confused Transfers Functional [place] Measure 0=Not Assessed/NA 4=Minimal Assistance 1=Total Assistance 5=Supervision or Setup 2=Maximal Assistance 6=Modified [place] 3=Moderate Assistance 7=Complete IndependenceIRFPAI Quality Coding Scale 6 Independent with activity with or without an assistive device 5 Patient requires set up or clean up by helper. Patient completes activity by themselves 4 Supervision or touching assist (CGA). [place] provide cues , steadying assist 3 The helper provides less than half the effort to complete the activity 2 The helper provides more than half the effort to complete the activity 1 Dependent. The helper does all the effort to complete an activity 7 Patient refused to complete or attempt activity 9 The patient did not perform the activity before the current illness or injury 88 Not attempted due to Medical conditions or safety concerns Transfers (B, C, W/C) (FIM): 3 Scootin Sit to/from Stand: 3 sit to stand mod assist x 3 sets with patient standing CGA with FWW in front of chair Weight Bearing Right Lower Extremity: Right Full Weight Bearing Left Lower Extremity: Left Full Weight Bearing Exercises Seated Therapy Exercises: Ankle pumps, Long arc quads Seated Reps: 15 (AAROM) Assessment Due to confusion and difficulty following simple direction, patient is limited and will progress slowly. Patient has improved with sit to stand transfers. Patient remains up in recliner with family present. PT Short Term Goals Short Term Goals Time Frame: October 15, 2017 Transfers (B,C,W/C) (FIM): 4 Gait (FIM): 1 Gait Distance Comment: 20' Gait Level of Assist: 4 Gait Assistive Device: FWW PT Plan Treatment/Plan Treatment Plan: Continue Plan of Care Treatment Plan: Bed Mobility, Education, Functional Activity Tory, Functional Strength, Gait, Safety, Therapeutic Exercise, Transfers Treatment Duration: October 15, 2017 Frequency: 11 times per week Estimated Hrs Per Day: .25 hour per day (15-30') Patient and/or Family Agrees t: Yes Time/GCodes Time In: 1016 Time Out: 1039 Total Billed Treatment Time: 23 Total Billed Treatment 1 visit FA x 2 23 min DAMIEN WILLIAMSON PT Oct 10, 2017 10:52
--- NOTE | 2017-10-10 11:13 | Diagnostic Imaging Report ---
INDICATION: Increasing confusion and fever. TIME OF EXAM: 9:59 AM COMPARISON: No prior studies are available for comparison. FINDINGS: No significant infiltrate is detected. The heart size is normal. No effusion or pneumothorax is identified. IMPRESSION: No acute cardiopulmonary process is detected. Dictated by: Dictated on workstation # [id number]
[2017-10-10] MEDS ORDERED: MIRT15TA8 PO (11:28)
[2017-10-10] MEDS ORDERED: DVL125C PO (11:28)
--- NOTE | 2017-10-10 11:28 | Discharge Summary-Hospitalist ---
Diagnosis/Chief Complaint Date of Admission Oct 06, 2017 at 22:32 Date of Discharge Discharge Date: Oct 10, 2017 Discharge Diagnosis Assessment: Acute left hip fracture status post uncomplicated repair POD # 3 Hypothyroidism Severe dementia HTN Hypokalemia Constipation Plan: Check labs in morning DVT prophylaxis [facility] placement on Friday Increase BP meds BM regimen (1) Hip fracture, left Status: Acute (2) Dementia Status: Chronic (3) Hypothyroidism Status: Chronic (4) Hypertension Status: Chronic (5) Hypokalemia Status: Acute (6) Constipation Status: Chronic Discharge Summary Discharge Physical Exam Allergies: Coded Allergies: No Known Drug Allergies (Unverified , 10/06/17) Vitals & I&Os Vital Signs Date Time Temp Pulse Resp B/P (MAP) Pulse Ox O2 Delivery O2 Flow Rate FiO2 10/10/17 08:51 100.2 10/10/17 08:00 104 18 166/79 (108) 95 Room Air 10/07/17 19:10 2.00 General Appearance: Alert Respiratory: Clear to Auscultation, Normal Air Movement Psych/Mental Status: Other (Disoriented and very confused) Hospital Course Hospital course: Patient had a standard hospital course but due to the severity of her dementia she was unable to fully recover as quickly as standard course and dementia did have delirium with behavior problems during the hospital stay. New-onset fever was noted so chest x-ray was reviewed revealing no infiltrate and urinalysis was still pending at time of swing bed decision and transition. Overall she improved with postop bowel constipation resolved at time of discharge and overall her prognosis remains very poor due to the severity of her dementia and Dr. Alonzo her primary care provider whom I conferred with yesterday agreed with this plan. We will monitor her closely monitor the fever work on incentive spirometer is much as possible but overall prognosis very poor and the family is in agreement with the plan. We will plan on discharge to [facility] on Friday. Labs (last 24 hrs) Laboratory Tests 10/10/17 06:02: White Blood Count 14.1H, Red Blood Count 3.55L, Hemoglobin 11.3L, Hematocrit 33L , Mean Corpuscular Volume 92, Mean Corpuscular Hemoglobin 32, Mean Corpuscular Hemoglobin Concent 35, Red Cell Distribution Width 13.8, Platelet Count 354, Mean Platelet Volume 9.7, Neutrophils (%) (Auto) 85H, Lymphocytes (%) (Auto) 7L , Monocytes (%) (Auto) 7, Eosinophils (%) (Auto) 0, Basophils (%) (Auto) 0, Neutrophils # (Auto) 12.0H, Lymphocytes # (Auto) 1.0, Monocytes # (Auto) 1.0, Eosinophils # (Auto) 0.0, Basophils # (Auto) 0.0, Sodium Level 136, Potassium Level 3.3L, Chloride Level 102, Carbon Dioxide Level 21, Anion Gap 13, Blood Urea Nitrogen 12, Creatinine 0.68, Estimat Glomerular Filtration Rate > 60, BUN/ Creatinine Ratio 18, Glucose Level 114H, Calcium Level 8.5, Total Bilirubin 0.9 , Aspartate Amino Transf (AST/SGOT) 33, Alanine Aminotransferase (ALT/SGPT) 13, Alkaline Phosphatase 87, Total Protein 5.7L, Albumin 3.0L Patient resulted labs reviewed. Pending Labs Laboratory Tests 10/10/17 06:02: White Blood Count 14.1, Red Blood Count 3.55, Hemoglobin 11.3, Hematocrit 33, Mean Corpuscular Volume 92, Mean Corpuscular Hemoglobin 32, Mean Corpuscular Hemoglobin Concent 35, Red Cell Distribution Width 13.8, Platelet Count 354, Mean Platelet Volume 9.7, Neutrophils (%) (Auto) 85, Lymphocytes (%) (Auto) 7, Monocytes (%) (Auto) 7, Eosinophils (%) (Auto) 0, Basophils (%) (Auto) 0, Neutrophils # (Auto) 12.0, Lymphocytes # (Auto) 1.0, Monocytes # (Auto) 1.0, Eosinophils # (Auto) 0.0, Basophils # (Auto) 0.0, Sodium Level 136, Potassium Level 3.3, Chloride Level 102, Carbon Dioxide Level 21, Anion Gap 13, Blood Urea Nitrogen 12, Creatinine 0.68, Estimat Glomerular Filtration Rate > 60, BUN/ Creatinine Ratio 18, Glucose Level 114, Calcium Level 8.5, Total Bilirubin 0.9, Aspartate Amino Transf (AST/SGOT) 33, Alanine Aminotransferase (ALT/SGPT) 13, Alkaline Phosphatase 87, Total Protein 5.7, Albumin 3.0 Discussion & Recommendations Discharge Planning: <30 minutes discharge planning Discharge Home Medications: Active Scripts Active Mirtazapine 15 Mg Tab.rapdis 7.5 Mg PO HS 14 Days Depakote Sprinkle (Divalproex Sodium) 125 Mg Cap 125 Mg PO Q8HR 14 Days Hydrocodone/Acetaminophen 5/325mg Tablet (Acetaminophen/Hydrocodone Bitart) 1 Tab Tab 1-2 Tab PO Q4H PRN Reported Quetiapine Fumarate 25 Mg Tablet 25 Mg PO HS Coconut Oil 1,000 Mg Capsule 1,000 Mg PO DAILY Vitamin B Complex 1 Each Capsule 1 Cap PO DAILY Vitamin D3 (Cholecalciferol (Vitamin D3)) 2,000 Unit Capsule 2,000 Unit PO DAILY Levothyroxine Sodium 50 Mcg Tablet 50 Mcg PO DAILY Amlodipine Besylate 5 Mg Tablet 5 Mg PO DAILY Instructions to patient/family Please see electronic discharge instructions given to patient. Clinical Quality Measures DVT/VTE Risk/Contraindication: Risk Factor Score Per Nursin RFS Level Per Nursing on Admit: 4+=Very High Problem Qualifiers (1) Hip fracture, left: Encounter type: initial encounter Fracture type: closed Qualified Codes: S72.002A - Fracture of unspecified part of neck of left femur, initial encounter for closed fracture (2) Dementia: Dementia type: Alzheimer's disease Alzheimer's disease onset: unspecified onset Dementia behavioral disturbance: with behavioral disturbance Qualified Codes: G30.9 - Alzheimer's disease, unspecified; F02.81 - Dementia in other diseases classified elsewhere with behavioral disturbance (3) Hypothyroidism: Hypothyroidism type: acquired Qualified Codes: E03.9 - Hypothyroidism, unspecified (4) Hypertension: Hypertension type: essential hypertension Qualified Codes: I10 - Essential ( primary) hypertension (5) Constipation: Constipation type: drug induced constipation Qualified Codes: K59.03 - Drug induced constipation FILI CREWS DO Oct 10, 2017 11:28
== END 2017-10-10 11:28 | disposition swing bed (61) | DRG 470 ==
LOC: 4TH 22:32
PROVIDERS: ADMIT Orthopaedic Surgery; ATTEND Orthopaedic Surgery
PROC: 0SRS01A Replacement of Left Hip Joint, Femoral Surface with Metal Synthetic Substitute, Uncemented, Open Approach (ICD-10-PCS; principal; 2017-10-07 12:48)
DX: S72.012A Unspecified intracapsular fracture of left femur, initial encounter for closed fracture (principal); I10 Essential (primary) hypertension; F02.81 Dementia in other diseases classified elsewhere, unspecified severity, with behavioral disturbance; G30.9 Alzheimer's disease, unspecified; E87.6 Hypokalemia; R50.9 Fever, unspecified; K59.03 Drug induced constipation; T40.605A Adverse effect of unspecified narcotics, initial encounter; E03.9 Hypothyroidism, unspecified; F41.9 Anxiety disorder, unspecified; G47.9 Sleep disorder, unspecified; S40.212A Abrasion of left shoulder, initial encounter; M19.041 Primary osteoarthritis, right hand; M19.042 Primary osteoarthritis, left hand; W19.XXXA Unspecified fall, initial encounter
CPT/HCPCS: 36415; 71045; 72170; 73502; 80053; 85014; 85018; 85025; 94664; 94760

== ENCOUNTER 2017-10-10 09:49 | Inpatient (IN) | payer MEDICARE ==
[~2017-10-10] VITALS: Ht 167.6 cm; Wt 58.5 kg
[~2017-10-10 09:49] MED LIST: ACHD5005 PO; ALPR1TAB7 PO; AMIT50TA3 PO; AMLO5TAB2 PO; CHOL20003 PO; COCO1000 PO; LEVO50TA6 PO; QUET25TA73 PO; VITA1CAP PO
[2017-10-10] MEDS ORDERED: DVL125C PO (11:28)
[2017-10-10] MEDS ORDERED: MIRT15TA8 PO (11:28)
[2017-10-10] MEDS ORDERED: LACTATED RINGERS 1,000 ML IV PRN (11:45)
[2017-10-10] MEDS ORDERED: morphine INJ 4 MG/ML 1 ML (VIAL/SYRINGE) IV PRN (11:45)
[2017-10-10] MEDS ORDERED: LORazepam INJ 2 MG/ML (ATIVAN) VIAL IV PRN (11:45)
[2017-10-10] MEDS ORDERED: HYDROcodone/APAP 5 MG/325 MG (LORTAB) TAB PO PRN (11:45)
[2017-10-10] MEDS ORDERED: ONDANSETRON 4 MG/2 ML (SDV) Z0FRAN IV PRN (11:45)
[2017-10-10] MEDS: hydrALAZINE (APRESOLINE) 25 MG TAB PO SCH ×2 (13:26→21:16)
[2017-10-10] MEDS: DIVALPROX SPRINKLE 125 MG (DEPAKOTE) CAP PO SCH ×2 (13:26→21:16)
[2017-10-10] MEDS: oxyCODONE/APAP 5/325MG (PERCOCET 5) TABLET PO PRN ×2 (13:27→21:20)
[2017-10-10 13:30] LABS: BILIRUBIN,URINE NEGATIVE (NEGATIVE); CLARITY,URINE CLEAR; COLOR,URINE YELLOW; GLUCOSE, URINE (UA) NEGATIVE (NEGATIVE); KETONES,URINE 3+ (NEGATIVE); LEUKOCYTE ESTERASE ,URINE 2+ (NEGATIVE); NITRITE,URINE NEGATIVE (NEGATIVE); PH,URINE 7 (5-9); PROTEIN,URINE 2+ (NEGATIVE); UROBILINOGEN,URINE NORMAL (NORMAL)
[2017-10-10 13:40] LABS: BACTERIA,URINE TRACE /HPF
[2017-10-10 13:41] LABS: SQUAMOUS EPITHELIAL CELL,UR 0-2 /HPF
--- NOTE | 2017-10-10 14:14 | Occupational Therapy Eval ---
OT Evaluation-General/PLF Medical Diagnosis Admission Date Oct 10, 2017 at 11:32 Medical Diagnosis: L ANY Onset Date: Oct 06, 2017 Therapy Diagnosis Therapy Diagnosis: decr self care, decr funct mobility, decr safety awareness Height/Weight Height (Feet): 5 Height (Inches): 6.00 Weight (Pounds): 128 Weight (Ounces): 14.7 Precautions Precautions/Isolations: Standard Precautions Weight Bear Status Weight Bearing Restriction: Full Weight Bearing Location Restriction: L LE Hip precautions Referral Physician: Magalie Referral Reason: Evaluation/Treatment Medical History Pertinent Medical History: Arthritis, Dementia, HTN, Hypothroidism Additional Medical History Cardiac, neurologic, psychological, endocrine hx. Cancer on nose. Sleep difficulties, anxiety Current History Pt was attempting to sit on a chair at home and missed the chair. L hip fx, with L hemiarthroplasty on 10-07-17. Hip precautions Reviewed History: Yes Social History Home: Apartment Current Living Status: Spouse ADL-Prior Level of Function ADL PLOF Comments Per acute care chart, pt has been living at home with spouse. She has required some assist with ADLs at baseline secondary to dementia. She is able to ambulate without AD and is able to dress, toilet and feed herself. Spouse assists with tub transfers and bathing. Daughter said that the family has been discussing the living situation as pt has been more difficult to care for at home. DME/Equipment: Grab Bars, Tub Drive Self: No OT Current Status Subjective Pt seen in room, up in bed, participated in OT. Unable to give pain rating but nursing just gave her some pain meds. Appearance Awake, mumbles but is somewhat understandable Mental Status/Objective Patient Orientation: Person, Confused Asked several times where she was Attachments: IV, Telemetry Current Glasses/Contacts: No Hearing Aids: Yes Dentures/Partials: No Hand Dominance: Right Upper Extremity ROM Grossly WFL bilat Upper Extremity Strength Unable to accurately assess strength. Grossly WFL ADL-Treatment ADL-Current Nursing reported that pt requires the assist of two people for toileting, using BSC. Family has been feeding her but she was able to get a drink when cup handed to her. Max assist to brush teeth, with pt placing toothbrush in mouth but not thoroughly brushing bottom teeth. Did not understand to brush top teeth or rinse mouth. Able to brush front part of hair. provided with a washcloth and pt was able to imitate washing around her mouth. Pt left up in bed, care transferred to PT. Functional [place] Measure 0=Not Assessed/NA 4=Minimal Assistance 1=Total Assistance 5=Supervision or Setup 2=Maximal Assistance 6=Modified [place] 3=Moderate Assistance 7=Complete IndependenceIRFPAI Quality Coding Scale 6 Independent with activity with or without an assistive device 5 Patient requires set up or clean up by helper. Patient completes activity by themselves 4 Supervision or touching assist (CGA). [place] provide cues , steadying assist 3 The helper provides less than half the effort to complete the activity 2 The helper provides more than half the effort to complete the activity 1 Dependent. The helper does all the effort to complete an activity 7 Patient refused to complete or attempt activity 9 The patient did not perform the activity before the current illness or injury 88 Not attempted due to Medical conditions or safety concerns Eating (FIM): 2 (Max) Eating (QC): 2 Grooming (FIM): 2 Oral Hygiene (QC): 2 Toileting (FIM): 1 (Per nursing, 2 people to do SPT to BSC and manage clothing/ hygiene) Toileting Hygiene (QC): 1 Toilet/Commode Transfer (FIM): 1 (Per nursing, two people to transfer to BSC and manage clothing ) Toilet Transfer (QC): 1 Education OT Patient Education: Purpose of tx/functional activities, Rehab process Teaching Recipient: Patient Teaching Methods: Demonstration Response to Teaching: Unable to Comprehend OT Events Traffic Controller Goals Events Traffic Controller Goals Time Frame: October 17, 2017 Eating (FIM): 5 Eating (QC): 4 Groomin Oral Hygiene (QC): 4 Toileting(FIM): 3 Toileting Hygiene (QC): 3 Toilet/Commode Transfer(FIM): 4 Toilet/Commode Transfer (QC): 3 Additional Goals: 1-Demonstrate ADL Tasks, 2-Verbalize Understanding, 3- ImproveStrength/Tory 1=Demonstrate adherence to instructed precautions during ADL tasks. 2=Patient will verbalize/demonstrate understanding of assistive devices/ modifications for ADL. 3=Patient will improve strength/tolerance for activity to enable patient to perform ADL's. OT Education/Plan Problem List/Assessment Assessment: Decreased Safety Aware, Decreased UE Strength, Dependent Transfers , Impaired Cognition, Impaired Coordination, Impaired Funct Balance, Impaired Self-Care Skills Pt would benefit from skilled OT to increase her independence in basic self care Discharge Recommendations Plan/Recommendations: Continue POC Treatment Plan/Plan of Care Treatment,Training & Education: Yes Patient would benefit from OT for education, treatment and training to promote independence in ADL's, mobility, safety and/or upper extremity function for ADL' s. Plan of Care: ADL Retraining, Functional Mobility, UE Funct Exercise/Act, UE Neuromus Re-Ed/Coord Treatment Duration: October 17, 2017 Frequency: 5 times per week Estimated Hrs Per Day: .5 hour per day Agreement: No (Pt unable to consent) Rehab Potential: Poor Time/GCodes Start Time: 13:25 Stop Time: 13:37 Total Time Billed (hr/min): 12 Billed Treatment Time visit, 12 minutes evaluation high intensity PELON SMALLS OT Oct 10, 2017 14:14
--- NOTE | 2017-10-10 14:23 | Physical Therapy Evaluation ---
PT Evaluation-General Medical Diagnosis Admission Date Oct 10, 2017 at 11:32 Medical Diagnosis: left ANY Onset Date: Oct 06, 2017 Therapy Diagnosis Therapy Diagnosis: impaired mobility, strength, endurance, ROM Height/Weight Height (Feet): 5 Height (Inches): 6.00 Weight (Pounds): 128 Weight (Ounces): 14.7 Weight Bear Status Left Lower Extremity: Left Weight Bearing/Tolerated Referral Physician: Lorna Mejias DO Reason for Referral: Evaluation/Treatment Medical History Pertinent Medical History: Arthritis, Dementia, HTN, Hypothroidism Social History Home: Apartment Current Living Status: Spouse Entry Into Home: Level Entry Prior/Core FIM Prior Level of Function Functional [place] Measure 0=Not Assessed/NA 4=Minimal Assistance 1=Total Assistance 5=Supervision or Setup 2=Maximal Assistance 6=Modified [place] 3=Moderate Assistance 7=Complete [place] unknown, patient is non-communicative PT Evaluation-Current Subjective Patient in bed pre tx, OT is just finishing up with her. Patient seems a little agitated but is virtually non-communicative and grunts. She shows signs of pain with activity and movement of her left hip. Pt/Family Goals none stated Objective Patient Orientation: Confused, Unable to Assess ROM/Strength ROM Lower Extremities unable to assess, PT was able to perform some light PROM on her left leg ( within precautions) but that is all Strenght Lower Extremities NT Transfers Functional [place] Measure 0=Not Assessed/NA 4=Minimal Assistance 1=Total Assistance 5=Supervision or Setup 2=Maximal Assistance 6=Modified [place] 3=Moderate Assistance 7=Complete [place] Transfers (B, C, W/C) (FIM): 1 Scootin Rollin Supine to/from Sit: 2 Sit to/from Stand: 2 Sit to Lying (QC): 2 Lying to Sitting/Side of Bed(Q: 2 Sit to Stand (QC): 2 Patient was dependent for bed mobility but did sit up with max assist and stood with max assist for about 5 min. After she was already standing she required min/mod assist to remain standing. Gait Comments/Gait Description attempted but patient would not take steps Balance Sitting Static: Good Sitting Dynamic: Good Standing Static: Poor Standing Dynamic: Poor Treatment Patient would not follow directions to perform LE total hip exercises so light PROM of the left leg was performed, in compliance with her hip precautions. Assessment/Needs Rehab Potential: Poor PT Sales Facilitator Goals [facility] Goals PT Sales Facilitator Goals Time Frame: October 31, 2017 Transfers (B,C,W/C) (FIM): 3 Sit to Lying (QC): 2 Lying-Sitting on Side/Bed(QC): 2 Sit to Stand (QC): 2 Rollin Chair/[id number]-hg-Xbing Xfer(QC): 2 Gait (FIM): 1 Distance: 3' Gait Level of Assist: 2 Gait Assistive Device: FWW PT Plan Problem List Problem List: Activity Tolerance, Functional Strength, Safety, Balance, Gait, Transfer, Bed Mobility, ROM Treatment/Plan Treatment Plan: Continue Plan of Care Treatment Plan: Bed Mobility, Concurrent Therapy, Education, Functional Activity Tory, Functional Strength, Gait, Safety, Therapeutic Exercise, Transfers Treatment Duration: October 31, 2017 Frequency: 11 times per week Estimated Hrs Per Day: .25 hour per day (15-30') Patient and/or Family Agrees t: Yes Safety Risks/Education Patient Education: Transfer Techniques, Reviewed Precautions, Correct Positioning, Safety Issues Teaching Recipient: Patient Teaching Methods: Demonstration, Discussion Response to Teaching: Reinforcement Needed Discharge Recommendations Therapy D/C Recommendations: Home w/ Family Support, Long-Term (TCU/NH) Time/GCodes Time In: 1337 Time Out: 1407 Total Billed Treatment Time: 30 Total Billed Treatment 1 visit [facility] 15' FA 15' ZHANNA MAO PT Oct 10, 2017 14:23
[2017-10-10 18:00] VITALS: BP 143/75
[2017-10-10] MEDS: ACETAMINOPHEN 325 MG TABLET/CAPLET (TYLENOL) PO PRN (18:49)
[2017-10-10] MEDS: QUEtiapine 25 MG (SEROquel) TAB IMMEDIATE RELEASE PO SCH (21:16)
[2017-10-10] MEDS: MIRTAZAPINE 15 MG (REMERON) TAB PO SCH (21:16)
[2017-10-11] MEDS: LEVOTHYROXINE 50 MCG (LEVOTHROID) TAB PO SCH (05:49)
[2017-10-11] MEDS: MULTIVIT W/MINERALS TAB (THERAGRAN M) PO SCH (05:49)
[2017-10-11] MEDS: DIVALPROX SPRINKLE 125 MG (DEPAKOTE) CAP PO SCH ×3 (05:49→21:11)
[2017-10-11] MEDS: hydrALAZINE (APRESOLINE) 25 MG TAB PO SCH ×3 (05:49→21:11)
[2017-10-11 06:06] VITALS: BP 137/77
[2017-10-11 08:00] VITALS: BP 130/63
[2017-10-11] MEDS: oxyCODONE/APAP 5/325MG (PERCOCET 5) TABLET PO PRN ×2 (08:13→13:35)
[2017-10-11] MEDS: amLODIPine 10 MG (NORVASC) TAB PO SCH (08:13)
[2017-10-11] MEDS: VITAMIN D3 1,000 UNITS (CHOLECALCIFEROL) TABLET PO SCH (08:14)
[2017-10-11] MEDS: BISACODYL 10 MG SUPP (DULCOLAX) PR SCH (08:19)
[2017-10-11] MEDS ORDERED: COCONUT OIL 1000 MG PO SCH (09:00)
--- NOTE | 2017-10-11 10:47 | Physical Therapy Daily Note ---
PT Daily Note-Current Subjective Pt. in bed with daughter present. Pt. grunts throughout session, frequently asks "where am I?" Unable to respond to questions re: pain. Mental Status Patient Orientation: Confused Transfers Functional [place] Measure 0=Not Assessed/NA 4=Minimal Assistance 1=Total Assistance 5=Supervision or Setup 2=Maximal Assistance 6=Modified [place] 3=Moderate Assistance 7=Complete IndependenceIRFPAI Quality Coding Scale 6 Independent with activity with or without an assistive device 5 Patient requires set up or clean up by helper. Patient completes activity by themselves 4 Supervision or touching assist (CGA). [place] provide cues , steadying assist 3 The helper provides less than half the effort to complete the activity 2 The helper provides more than half the effort to complete the activity 1 Dependent. The helper does all the effort to complete an activity 7 Patient refused to complete or attempt activity 9 The patient did not perform the activity before the current illness or injury 88 Not attempted due to Medical conditions or safety concerns Transfers (B, C, W/C) (FIM): 1 Supine to/from Sit: 3 Sit to/from Stand: 3 Bed to/from Chair: 1 During transfer to chair, pt. needed to use commode thus it was placed behind her. Assist from nursing staff with pericare. Pt. transferred commode to chair mod A x 2. Weight Bearing Left Lower Extremity: Left Weight Bearing/Tolerated Treatments transfers Assessment Current Status: Fair Progress Pt. had difficulty advancing R LE due to minimal weight bearing on the left LE. She is able to take very small steps with mod A x 2 but unable to follow commands for transfers due to severe dementia. Pt. up in bedside chair post session with alarm in place, daughter present and all needs met. PT Alf Goals Sleep Tech Goals PT Sleep Tech Goals Time Frame: October 31, 2017 Transfers (B,C,W/C) (FIM): 3 Sit to Lying (QC): 2 Lying-Sitting on Side/Bed(QC): 2 Sit to Stand (QC): 2 Rollin Chair/[id number] Xfer(QC): 2 Gait (FIM): 1 Distance: 3' Gait Level of Assist: 2 Gait Assistive Device: FWW PT Plan Treatment/Plan Treatment Plan: Continue Plan of Care Treatment Plan: Bed Mobility, Concurrent Therapy, Education, Functional Activity Tory, Functional Strength, Gait, Safety, Therapeutic Exercise, Transfers Treatment Duration: October 31, 2017 Frequency: 11 times per week Estimated Hrs Per Day: .25 hour per day (15-30') Patient and/or Family Agrees t: Yes Time/GCodes Time In: 1004 Time Out: 1027 Total Billed Treatment Time: 23 Total Billed Treatment 1, FA 23' MAGGIE AGUILAR PT Oct 11, 2017 10:47
[2017-10-11 17:15] VITALS: BP 131/68
[2017-10-11] MEDS: QUEtiapine 25 MG (SEROquel) TAB IMMEDIATE RELEASE PO SCH (21:11)
[2017-10-11] MEDS: MIRTAZAPINE 15 MG (REMERON) TAB PO SCH (21:11)
[2017-10-12 06:00] VITALS: BP 139/76
[2017-10-12] MEDS: MULTIVIT W/MINERALS TAB (THERAGRAN M) PO SCH (06:23)
[2017-10-12] MEDS: LEVOTHYROXINE 50 MCG (LEVOTHROID) TAB PO SCH (06:23)
[2017-10-12] MEDS: hydrALAZINE (APRESOLINE) 25 MG TAB PO SCH ×3 (06:23→21:22)
[2017-10-12] MEDS: DIVALPROX SPRINKLE 125 MG (DEPAKOTE) CAP PO SCH ×3 (06:23→21:22)
[2017-10-12] MEDS: oxyCODONE/APAP 5/325MG (PERCOCET 5) TABLET PO PRN ×3 (08:15→21:22)
[2017-10-12] MEDS: VITAMIN D3 1,000 UNITS (CHOLECALCIFEROL) TABLET PO SCH (08:15)
[2017-10-12] MEDS: BISACODYL 10 MG SUPP (DULCOLAX) PR SCH (08:16)
[2017-10-12] MEDS: amLODIPine 10 MG (NORVASC) TAB PO SCH (08:16)
[2017-10-12] MEDS: LORazepam 1 MG (ATIVAN) TAB PO PRN (14:20)
[2017-10-12] MEDS: ACETAMINOPHEN 325 MG TABLET/CAPLET (TYLENOL) PO PRN (16:27)
[2017-10-12 18:11] VITALS: BP 155/65
[2017-10-12] MEDS: QUEtiapine 25 MG (SEROquel) TAB IMMEDIATE RELEASE PO SCH (20:15)
[2017-10-12] MEDS: MIRTAZAPINE 15 MG (REMERON) TAB PO SCH (20:15)
[2017-10-13] MEDS: LORazepam 1 MG (ATIVAN) TAB PO PRN (01:35)
[2017-10-13 06:00] VITALS: BP 140/63
[2017-10-13] MEDS: DIVALPROX SPRINKLE 125 MG (DEPAKOTE) CAP PO SCH ×2 (06:11→13:31)
[2017-10-13] MEDS: MULTIVIT W/MINERALS TAB (THERAGRAN M) PO SCH (06:11)
[2017-10-13] MEDS: hydrALAZINE (APRESOLINE) 25 MG TAB PO SCH ×2 (06:11→13:31)
[2017-10-13] MEDS: LEVOTHYROXINE 50 MCG (LEVOTHROID) TAB PO SCH (06:11)
[2017-10-13] MEDS: amLODIPine 10 MG (NORVASC) TAB PO SCH (09:35)
[2017-10-13] MEDS: VITAMIN D3 1,000 UNITS (CHOLECALCIFEROL) TABLET PO SCH (09:35)
[2017-10-13] MEDS: ACETAMINOPHEN 325 MG TABLET/CAPLET (TYLENOL) PO PRN (09:35)
--- NOTE | 2017-10-13 10:36 | Discharge Inst-Skilled Nursing ---
Discharge Inst-Skilled NF Patient Instructions Patient Problems: Immediately postop operative repair left hip. Moderately severe to severe dementia Goal: Restore ambulation Consult/Follow Up/Orders Follow Up Appt.: Make appointment with Dr. Alonzo on return Skilled NF Admit to: Certification (SNF) I certify that SNF services are required to be given on an inpatient basis because of the above named patient's need for assisted care on a continuing basis for the conditions(s) for which he/she was receiving inpatient hospital services prior to his/her transfer to the SNF. Nursing Home Facility Order: Nursing Services, Enologist-Evaluate & Treat, Physical Therapy-Evaluate & Treat Discharge Diet: No Restrictions Daily Activity as Tolerated: Yes New & Resume Previous Orders Alfonzo Mcgee Oct 13, 2017 10:29 ALFONZO MCGEE MD Oct 13, 2017 10:31
--- NOTE | 2017-10-13 10:39 | Progress Note-Hospitalist ---
Progress Note Progress Notes/Assess & Plan Date Seen 10/13/17 Time Seen by Provider: 10:36 Assessment & Plan The patient is an 81-year-old white female from [place]. She was admitted by Dr. Browne after the being evaluated following a fall. She was determined to have a femoral neck fracture on the left and was transferred here for operative repair. She is severely demented and has had more trouble than usual since her operation. She is actually quite calm this morning although with a blank stare and her daughter is here with her. Physical exam: We had a slender elderly female. She was unclear about place or date. Lungs were clear to auscultation. CV was regular without murmur. There was no pedal edema. Impression: Successful operative repair left femoral neck fracture. 2.severe dementia. Plan: Return to medical [facility] [place]. Medications and routines as on the discharge sequence. Copy Copies To 1: JONATAHN VARGHESE MD, RODNEY K MD Oct 13, 2017 10:39
[2017-10-13 15:38] VITALS: BP 140/63
--- NOTE | 2017-10-13 16:03 | Therapy Team Discharge Summary ---
Therapy Discharge Summary Discharge Recommendations Date of Discharge Oct 13, 2017 at 14:58 Therapy D/C Recommendations: Home w/ Family Support, [facility] (TCU/[facility]) Occupational Therapy Pt was seen for skilled OT to increase her independence in basic self care. On admission she needed maximum assistance to feed herself, maximum assistance for grooming and oral care and was dependant with toileting, requiring two people for toileting and toilet transfers. She was not seen by OT on day of discharge but per nursing and PT documentation she continued to need to be fed and required two people for transfer to [facility]. OT goals not met. Pt discharged to SNF today. DC OT. Decreased Safety Aware, Decreased UE Strength, Dependent Transfers, Impaired Cognition, Impaired Coordination, Impaired Funct Balance, Impaired Self-Care Skills PT Jail Goals Kindergartners Helper Goals PT Kindergartners Helper Goals Time Frame: October 31, 2017 Transfers (B,C,W/C) (FIM): 3 Sit to Lying (QC): 2 Lying-Sitting on Side/Bed(QC): 2 Sit to Stand (QC): 2 Rollin Chair/Rvs-tw-Nxpyi Xfer(QC): 2 Gait (FIM): 1 Distance: 3' Gait Level of Assist: 2 Gait Assistive Device: FWW OT Kindergartners Helper Goals Jail Goals Time Frame: October 17, 2017 Eating (FIM): 5 (not met ) Eating (QC): 4 (not met ) Groomin (not met ) Oral Hygiene (QC): 4 (not met ) Toileting(FIM): 3 (not met ) Toileting Hygiene (QC): 3 (not met ) Toilet/Commode Transfer(FIM): 4 (not met ) Toilet/Commode Transfer (QC): 3 (not met ) Additional Goals: 1-Demonstrate ADL Tasks, 2-Verbalize Understanding, 3- ImproveStrength/Tory 1=Demonstrate adherence to instructed precautions during ADL tasks. 2=Patient will verbalize/demonstrate understanding of assistive devices/ modifications for ADL. 3=Patient will improve strength/tolerance for activity to enable patient to perform ADL's. PELON SMALLS OT Oct 13, 2017 16:03
--- NOTE | 2017-10-14 10:15 | Therapy Team Discharge Summary ---
Therapy Discharge Summary Discharge Recommendations Date of Discharge Oct 13, 2017 at 14:58 Therapy D/C Recommendations: Home w/ Family Support, [facility] ([facility] Occupational Therapy Decreased Safety Aware, Decreased UE Strength, Dependent Transfers, Impaired Cognition, Impaired Coordination, Impaired Funct Balance, Impaired Self-Care Skills PT Prison Goals Prison Goals PT Prison Goals Time Frame: October 31, 2017 Transfers (B,C,W/C) (FIM): 3 (Goal not met FIM1 as of 10/11/17) Sit to Lying (QC): 2 (QC 1 Pt total assist as of 10/11/17) Lying-Sitting on Side/Bed(QC): 2 (QC 1 Pt total assist as of 10/11/17) Sit to Stand (QC): 2 (QC 1 Pt total assist as of 10/11/17) Rollin (QC 1 Pt total assist as of 10/11/17) Chair/Lol-ku-Psydi Xfer(QC): 2 (QC 1 Pt total assist as of 10/11/17) Gait (FIM): 1 (Goal not met FIM1 as of 10/11/17) Distance: 3' Walk 50ft with 2 Turns (QC): 1 Walk 150 ft (QC): 1 Gait Level of Assist: 2 (requires assist of 2) Gait Assistive Device: FWW OT Prison Goals Mannequin Wig Maker Goals Time Frame: October 17, 2017 Eating (FIM): 5 (not met ) Eating (QC): 4 (not met ) Groomin (not met ) Oral Hygiene (QC): 4 (not met ) Toileting(FIM): 3 (not met ) Toileting Hygiene (QC): 3 (not met ) Toilet/Commode Transfer(FIM): 4 (not met ) Toilet/Commode Transfer (QC): 3 (not met ) Additional Goals: 1-Demonstrate ADL Tasks, 2-Verbalize Understanding, 3- ImproveStrength/Tory 1=Demonstrate adherence to instructed precautions during ADL tasks. 2=Patient will verbalize/demonstrate understanding of assistive devices/ modifications for ADL. 3=Patient will improve strength/tolerance for activity to enable patient to perform ADL's. NISSA STORY PT October 14, 2017 10:15
--- NOTE | 2017-10-30 15:05 | Discharge Summary-Hospitalist ---
Diagnosis/Chief Complaint Date of Admission Oct 10, 2017 at 11:32 Date of Discharge Oct 13, 2017 at 14:58 Admission Diagnosis Postop hip repair. 2.dementia Discharge Diagnosis Postop hip repair. 2.dementia Discharge Summary Discharge Physical Exam Allergies: Coded Allergies: No Known Drug Allergies (Unverified , 10/06/17) General Appearance: Alert, Cooperative Hospital Course the patient was an 81-year-old female with dementia who was transferred from the [place] emergency room after she presented there following a fall. She was discovered to have a hip fracture and was referred here for orthopedic services. These are described in her previous chart. She was transferred to swing bed status to continue physical therapy. Arrangements have been made for her to be transferred to a nursing facility in [place] to continue physical therapy there. She is in stable condition as compared to her previous state. See the discharge sequence for medications and activities. Labs (last 24 hrs) Microbiology 10/10/17 Urine Culture - Final, Complete NO GROWTH Patient resulted labs reviewed. Discussion & Recommendations Discharge Planning: >30 minutes discharge planning Discharge Home Medications: Active Scripts Active Mirtazapine 15 Mg Tab.rapdis 7.5 Mg PO HS 14 Days Depakote Sprinkle (Divalproex Sodium) 125 Mg Cap 125 Mg PO Q8HR 14 Days Reported Quetiapine Fumarate 25 Mg Tablet 25 Mg PO HS Coconut Oil 1,000 Mg Capsule 1,000 Mg PO DAILY Vitamin B Complex 1 Each Capsule 1 Cap PO DAILY Vitamin D3 (Cholecalciferol (Vitamin D3)) 2,000 Unit Capsule 2,000 Unit PO DAILY Levothyroxine Sodium 50 Mcg Tablet 50 Mcg PO DAILY Amlodipine Besylate 5 Mg Tablet 5 Mg PO DAILY Instructions to patient/family Please see electronic discharge instructions given to patient. Clinical Quality Measures DVT/VTE Risk/Contraindication: Risk Factor Score Per Nursin ANAMARIA MCGEE MD October 30, 2017 15:05
== END 2017-10-13 14:58 | DRG 536 ==
LOC: 4TH 11:32
PROVIDERS: ADMIT Internal Medicine; ATTEND Internal Medicine
DX: S72.012A Unspecified intracapsular fracture of left femur, initial encounter for closed fracture (principal); I10 Essential (primary) hypertension; F02.81 Dementia in other diseases classified elsewhere, unspecified severity, with behavioral disturbance; G30.9 Alzheimer's disease, unspecified; E87.6 Hypokalemia; R50.9 Fever, unspecified; K59.03 Drug induced constipation; T40.605A Adverse effect of unspecified narcotics, initial encounter; E03.9 Hypothyroidism, unspecified; F41.9 Anxiety disorder, unspecified; G47.9 Sleep disorder, unspecified; S40.212A Abrasion of left shoulder, initial encounter; M19.041 Primary osteoarthritis, right hand; M19.042 Primary osteoarthritis, left hand; W19.XXXA Unspecified fall, initial encounter
CPT/HCPCS: 81000; 87088

== ENCOUNTER 2019-06-14 11:30 | Emergency (ER) | payer MEDICARE, MEDICAID ==
[~2019-06-14 11:30] MED LIST changes: -AMLO5TAB2 PO; +AMLO5TAB9 PO; +DIVA125C PO; +MIRT-47 PO
--- NOTE | 2019-06-14 11:39 | ED General ---
General Stated Complaint: AMS Source of Information: EMS Exam Limitations: Physical Impairments History of Present Illness Date Seen by Provider: Jun 14, 2019 Time Seen by Provider: 11:36 Initial Comments 83-year-old female brought in by EMS. Patient sent from a [facility] to the ER because they wanted her to "see her doctor" patient has a history of severe dementia and is only alert to person. [facility] reports the patient was "catatonic" and hypoxic at the [facility]. They did place her on 2 L of oxygen. When EMS arrived, patient is at her baseline with an oxygen saturation in the upper 90s. No other history is provided. Allergies and Home Medications Allergies Coded Allergies: No Known Drug Allergies (Unverified , 10/06/17) Home Medications Amlodipine Besylate 5 Mg Tablet, 5 MG PO DAILY, (Reported) Cholecalciferol (Vitamin D3) 2,000 Unit Capsule, 2,000 UNIT PO DAILY, (Reported) Coconut Oil 1,000 Mg Capsule, 1,000 MG PO DAILY, (Reported) Divalproex Sodium 125 Mg Cap, 125 MG PO Q8HR Prescribed by: FILI CREWS on 10/10/17 1128 Levofloxacin 500 Mg Tablet, 500 MG PO DAILY Prescribed by: AFRICA ASH on 06/14/19 1315 Levothyroxine Sodium 50 Mcg Tablet, 50 MCG PO DAILY, (Reported) Mirtazapine 15 Mg Tab.rapdis, 7.5 MG PO HS Prescribed by: FILI CREWS on 10/10/17 1128 Quetiapine Fumarate 25 Mg Tablet, 25 MG PO HS, (Reported) Vitamin B Complex 1 Each Capsule, 1 CAP PO DAILY, (Reported) Patient Home Medication List Home Medication List Reviewed: Yes Review of Systems Review of Systems Constitutional: No chills, No fever Cardiovascular: see HPI Review of systems Limited to report from EMS and mcc Past Tlywzya-Npmfzy-Sspqge Hx Past Med/Social Hx: Reviewed Nursing Past Med/Soc Hx Patient Social History Recent Foreign Travel: Yes Recent Hopitalizations: No Seasonal Allergies Seasonal Allergies: No Past Medical History Surgeries: Yes Orthopedic Respiratory: No Cardiac: Yes Neurological: Yes Dementia Genitourinary: No Gastrointestinal: No Endocrine: Yes Hypothyroidsim HEENT: No 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 14.7oz. 58.552971av; 19.9 BMI Method: General Appearance: No Apparent Distress, Other (frail, cachectic) Respiratory: Lungs Clear, No Accessory Muscle Use Cardiovascular: Regular Rate, Rhythm Gastrointestinal: Non Tender, Soft Extremity: Normal Capillary Refill Neurologic/Psychiatric: Other (patient at baseline per EMS, patient with severe dementia) Skin: Normal Color, Warm/Dry Progress/Results/Core Measures Suspected Sepsis SIRS Temperature: Pulse: Respiratory Rate: Laboratory Tests 06/14/19 11:45: White Blood Count 20.6H Blood Pressure / Mean: Laboratory Tests 06/14/19 11:45: Creatinine 0.84, Platelet Count 696H Results/Orders Lab Results Laboratory Tests Test 06/14/19 11:45 Range/Units White Blood Count 20.6 H 4.3-11.0 10^3/uL Red Blood Count 4.18 L 4.35-5.85 10^6/uL Hemoglobin 13.3 11.5-16.0 G/DL Hematocrit 41 35-52 % Mean Corpuscular Volume 99 80-99 FL Mean Corpuscular Hemoglobin 32 25-34 PG Mean Corpuscular Hemoglobin Concent 32 32-36 G/DL Red Cell Distribution Width 16.6 H 10.0-14.5 % Platelet Count 696 H 130-400 10^3/uL Mean Platelet Volume 9.6 7.4-10.4 FL Neutrophils (%) (Auto) 72 42-75 % Lymphocytes (%) (Auto) 14 12-44 % Monocytes (%) (Auto) 13 H 0-12 % Eosinophils (%) (Auto) 0 0-10 % Basophils (%) (Auto) 0 0-10 % Neutrophils # (Auto) 14.8 H 1.8-7.8 X 10^3 Lymphocytes # (Auto) 2.9 1.0-4.0 X 10^3 Monocytes # (Auto) 2.7 H 0.0-1.0 X 10^3 Eosinophils # (Auto) 0.0 0.0-0.3 10^3/uL Basophils # (Auto) 0.1 0.0-0.1 10^3/uL Neutrophils % (Manual) 70 % Lymphocytes % (Manual) 12 % Monocytes % (Manual) 10 % Eosinophils % (Manual) 0 % Basophils % (Manual) 0 % Band Neutrophils 8 % Sodium Level 148 H 135-145 MMOL/L Potassium Level 4.0 3.6-5.0 MMOL/L Chloride Level 109 H 98-107 MMOL/L Carbon Dioxide Level 24 21-32 MMOL/L Anion Gap 15 H 5-14 MMOL/L Blood Urea Nitrogen 24 H 7-18 MG/DL Creatinine 0.84 0.60-1.30 MG/DL Estimat Glomerular Filtration Rate > 60 BUN/Creatinine Ratio 29 Glucose Level 116 H 70-105 MG/DL Calcium Level 8.4 L 8.5-10.1 MG/DL Pro-B-Type Natriuretic Peptide 3321.0 H <75.0 PG/ML Micro Results Microbiology 06/14/19 Influenza Types A,B Antigen (ALICIA) - Final, Complete My Orders Orders - AFRICA ASH DO Chest 1 View Ap/Pa Only (06/14/19 11:47) Basic Metabolic Panel (06/14/19 11:47) Cbc With Automated Diff (06/14/19 11:47) Probnp Fs (06/14/19 11:47) Influenza A And B Antigens (06/14/19 11:49) Manual Differential (06/14/19 11:45) Albuterol/Ipra Inhalation Soln (Duoneb I (06/14/19 12:30) Svn Small Volume Nebulizer (06/14/19 12:19) Ed Iv/Invasive Line Start (06/14/19 12:36) Ns (Ivpb) (Sodium Chloride 0.9%) (06/14/19 12:36) Ceftriaxone For Iv Use (Rocephin For I (06/14/19 12:45) Levofloxacin 500 Mg/100 Ml Iv (Levaquin (06/14/19 12:45) Acetaminophen Tablet (Tylenol Tablet) (06/14/19 13:27) Medications Given in ED Current Medications Medications Dose Ordered Sig/Timur Route Start Time Stop Time Status Last Admin Dose Admin Albuterol/ Ipratropium 3 ml ONCE ONCE INH 06/14/19 12:30 06/14/19 12:31 DC 06/14/19 12:29 3 ML Ceftriaxone Sodium 1000 mg/ Sterile Water 10 ml @ 200 mls/hr ONCE ONCE IV 06/14/19 12:45 06/14/19 12:47 DC 06/14/19 13:02 200 MLS/HR Levofloxacin/ Dextrose 100 ml @ 100 mls/hr ONCE ONCE IV 06/14/19 12:45 06/14/19 13:44 DC 06/14/19 13:03 100 MLS/HR Sodium Chloride 250 ml @ 0 mls/hr Q0M ONCE IV 06/14/19 12:36 06/14/19 12:44 DC 06/14/19 13:03 0 MLS/HR Vital Signs/I&O 06/14/19 06/14/19 11:52 13:35 Temp 36.8 38.4 Pulse 68 Resp 25 B/P (MAP) 110/56 (74) Pulse Ox 96 O2 Delivery Room Air Capillary Refill : Progress Note : Time: 13:12 Progress Note Patient with what appears be a left lower lobe pneumonia. Discussed with medical power of patent prosecution attorney of admission at [facility] versus outpatient treatment at [facility]. Patient is DO NOT RESUSCITATE with severe dementia. At this time they would prefer to try outpatient treatment with Levaquin and oxygen at [facility]. Patient will be given IV Levaquin IV Rocephin and a little bit of fluids here prior to discharge. She will then be transferred back to [facility] with orders for Levaquin 500 mg daily 6 days starting tomorrow along with oxygen 2 L as needed and titration to keep oxygen saturation saturation above 93%. Patient was stable upon discharge back to [facility] Departure Impression Primary Impression: Pneumonia Qualified Codes: J18.1 - Lobar pneumonia, unspecified organism Disposition: 01 HOME, SELF-CARE Condition: Stable Departure-Patient Inst. Referrals: JONATHAN VARGHESE MD (PCP/Family) Primary Care Physician Follow-up 3-4 days for recheck of symptoms Patient Instructions: Pneumonia, Adult (DC) Scripts Levofloxacin (Levofloxacin) 500 Mg Tablet 500 MG PO DAILY for 6 Days, #7 TAB 0 Refills Prov: AFRICA ASH DO 06/14/19 AFRICA ASH DO Jun 14, 2019 11:39
[2019-06-14 11:59] LABS: HEMATOCRIT 41 % (35-52); HEMOGLOBIN 13.3 G/DL (11.5-16.0); MEAN CORPUSCULAR HEMOGLOBIN 32 PG (25-34); MEAN CORPUSCULAR HGB CONC 32 G/DL (32-36); MEAN CORPUSCULAR VOLUME 99 FL (80-99); MEAN PLATELET VOLUME 9.6 FL (7.4-10.4); PLATELET COUNT 696 10^3/uL (130-400); RED CELL DISTRIBUTION WIDTH 16.6 % (10.0-14.5); WHITE BLOOD COUNT 20.6 10^3/uL (4.3-11.0)
[2019-06-14 12:00] LABS: BASOPHILS # (AUTO) 0.1 10^3/uL (0.0-0.1); BASOPHILS % (AUTO) 0 % (0-10); EOSINOPHILS % (AUTO) 0 % (0-10); LYMPHOCYTES # (AUTO) 2.9 X 10^3 (1.0-4.0); LYMPHOCYTES % (AUTO) 14 % (12-44); MONOCYTES # (AUTO) 2.7 X 10^3 (0.0-1.0); MONOCYTES % (AUTO) 13 % (0-12); NEUTROPHILS # (AUTO) 14.8 X 10^3 (1.8-7.8); NEUTROPHILS % (AUTO) 72 % (42-75)
--- NOTE | 2019-06-14 12:07 | Diagnostic Imaging Report ---
INDICATION: Altered mental status. TIME OF EXAM: 11:52 a.m. COMPARISON: Correlation is made with prior chest from 10/10/2017. FINDINGS: Heart appears enlarged. The left base is obscured, and the left hemidiaphragm is obscured. This is suspicious for left basilar process such as pneumonia and/or pleural fluid. Right lung is clear. There is no pneumothorax. IMPRESSION: Left basilar infiltrate/atelectasis and perhaps a left pleural effusion. Dictated by: Dictated on workstation # [id number]
[2019-06-14] MEDS ORDERED: RT-ALBUTEROL/IPRATROPIUM 3 ML (DUONEB) VIAL INH ONE (12:30)
[2019-06-14 12:32] LABS: CHLORIDE 109 MMOL/L (98-107); SODIUM 148 MMOL/L (135-145)
[2019-06-14 12:33] LABS: BUN/CREATININE RATIO 29; CALCIUM 8.4 MG/DL (8.5-10.1); CARBON DIOXIDE 24 MMOL/L (21-32); CREATININE SERUM 0.84 MG/DL (0.60-1.30); GFR ESTIMATED > 60; GLUCOSE 116 MG/DL (70-105)
[2019-06-14 12:34] LABS: BAND NEUTROPHILS 8 %; BASOPHILS % (MANUAL) 0 %; EOSINOPHILS % (MANUAL) 0 %; LYMPHOCYTES % (MANUAL) 12 %; MONOCYTES % (MANUAL) 10 %; NEUTROPHILS % (MANUAL) 70 %
[2019-06-14] MEDS ORDERED: NS (IVPB) 250 ML IV ONE (12:36)
[2019-06-14] MEDS ORDERED: cefTRIAXone FOR IV USE 1,000 MG in WATER (STERILE) FOR INJECTION 10 ML IV ONE (12:45)
[2019-06-14] MEDS ORDERED: LEVOFLOXACIN 500 MG/100 ML IV 100 ML IV ONE (12:45)
[2019-06-14] MEDS ORDERED: LEVO500T80 PO (13:15)
[2019-06-14] MEDS ORDERED: ACETAMINOPHEN 500 MG TAB (TYLENOL) PO STA (13:27)
[2019-06-14 15:40] VITALS: BP 137/56
== END 2019-06-14 15:40 | disposition home or self-care (01) ==
LOC: EDUNIT# 11:30 → ER FS 11:31
DX: J18.9 Pneumonia, unspecified organism (principal); F03.90 Unspecified dementia, unspecified severity, without behavioral disturbance, psychotic disturbance, mood disturbance, and anxiety; E03.9 Hypothyroidism, unspecified; F41.9 Anxiety disorder, unspecified; Z85.828 Personal history of other malignant neoplasm of skin; Z82.49 Family history of ischemic heart disease and other diseases of the circulatory system
CPT/HCPCS: 36415; 71045; 80048; 83880; 85007; 85027; 87804; 96374; 96375